=== PATIENT | male | born 1970 | race Caucasian/White ===

== ENCOUNTER 2021-05-09 09:06 | Emergency (ER) | payer OTHER, SELFPAY ==
[2021-05-09 09:07] VITALS: BP 147/88; PULSE 95; RESP 16; TEMP 36.3; O2SAT 99; BMI 38.7
[2021-05-09 09:27] VITALS: TEMP 36.8
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
[2021-05-09 09:52] LABS: Absolute Lymphocyte Count 0.83 X10^3/uL (0.83-4.51); Basophil# 0.04 X10^3/uL; Basophil% 0.4 % (0-1); Eosinophil# 0.01 X10^3/uL; Eosinophils% 0.1 % (0-5); Hematocrit 41.3 % (40-54); Lymphocyte # 0.83 X10^3/ul (0.83-4.51); Lymphocyte % 7.5 % (19-41); Mean Corp Hgb Conc 33.9 g/dL (32-36); Mean Corpuscular Hgb 29.5 pg (27.0-32.0); Mean Corpuscular Volume 87.1 fL (80-94); Mean Platelet Vol. 11.1 fl (6.2-12.0); Monocyte# 1.04 X10^3/uL; Monocyte% 9.5 % (0-10); NRBC Flagged by Analyzer 0 % (0-5); Neutrophil # 9.01 X10^3/uL (2.7-7.7); Neutrophil % 81.9 % (47-70); Platelet Count 156 K/mm3 (150-450); RBC Distribution Width CV 13.8 % (11.6-14.6); RBC Distribution Width SD 44.6 fl (35.1-43.9); Red Blood Count 4.74 M/mm3 (4.6-6.2)
[2021-05-09 10:10] LABS: ALB/GLOB Ratio 0.6 RATIO (0.9-2.4); AST(SGOT) 23 U/L (15-37); Alanine Aminotransfer ALT/SGPT 45 U/L (16-61); Albumin, Serum 3.1 g/dL (3.2-5.0); Alkaline Phosphatase 110 U/L (45-117); Anion Gap 7 (5-15); BUN 18 mg/dL (7-18); BUN/Creat Ratio 16.1 RATIO (10-20); Calcium,Total 9.1 mg/dL (8.5-10.1); Chloride 95 mmol/L (98-107); Creatinine, Serum 1.12 mg/dL (0.70-1.30); EST Glomerular Filtration Rate 73 mL/min (>60); Est Glom Filt Rate - Afr Amer 88 mL/min (>60); Estimated Creatinine Clearance 79.66 ml/min; Globulin 4.9 g/dL (2.2-4.2); Glucose 206 mg/dL (74-106); Potassium 3.8 mmol/L (3.5-5.1); Sodium Level 130 mmol/L (136-145)
[2021-05-09 10:23] LABS: Lactic Acid 1.5 mmol/L (0.4-1.9)
[2021-05-09 12:22] VITALS: BP 145/86; PULSE 92; RESP 17; TEMP 37; O2SAT 97
== END 2021-05-09 12:24 | disposition home or self-care (01) ==
PROVIDERS: Emergency Provider Emergency Medicine
DX: L03.115 Cellulitis of right lower limb (principal); E11.40 Type 2 diabetes mellitus with diabetic neuropathy, unspecified; Z79.84 Long term (current) use of oral hypoglycemic drugs; Z79.899 Other long term (current) drug therapy
CPT/HCPCS: 36415; 80053; 83605; 85025; 87040; 96365; 96366; 99284; J7030; J7040; A4216

== ENCOUNTER 2021-05-13 10:17 | Inpatient (IN) | payer OTHER, SELFPAY ==
[2021-05-13] VITALS (8 sets, daily range): BP systolic 142–176; BP diastolic 76–110; PULSE 83–98; RESP 16–18; TEMP 32.2–37; O2SAT 97–99; BMI 40.1; BMI 36.6
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
[2021-05-13 11:35] LABS: Absolute Neutrophil Count 6.2 X10^3/uL (2.0-7.7); Basophil# 0.05 X10^3/uL; Basophil% 0.6 % (0-1); Eosinophil# 0.16 X10^3/uL; Eosinophils% 1.8 % (0-5); Hematocrit 36.6 % (40-54); Hemoglobin 12.6 g/dL (13.0-16.5); Lymphocyte % 18.1 % (19-41); Mean Corp Hgb Conc 34.4 g/dL (32-36); Mean Corpuscular Hgb 29.8 pg (27.0-32.0); Mean Corpuscular Volume 86.5 fL (80-94); Mean Platelet Vol. 10.9 fl (6.2-12.0); Monocyte# 0.63 X10^3/uL; Monocyte% 7.1 % (0-10); NRBC Flagged by Analyzer 0 % (0-5); Neutrophil # 6.23 X10^3/uL (2.7-7.7); Neutrophil % 70.3 % (47-70); Platelet Count 219 K/mm3 (150-450); RBC Distribution Width CV 13.7 % (11.6-14.6); RBC Distribution Width SD 43.9 fl (35.1-43.9); Red Blood Count 4.23 M/mm3 (4.6-6.2); White Blood Count 8.9 K/mm3 (4.4-11.0)
[2021-05-13 11:42] LABS: International Normalized Ratio 1.1; Prothrombin Time (Protime)PT. 13.2 SECONDS (11.7-14.9)
[2021-05-13 11:43] LABS: Partial Thromboplast Time 29.8 Seconds (24.1-36.2)
[2021-05-13 11:57] LABS: ALB/GLOB Ratio 0.6 RATIO (0.9-2.4); AST(SGOT) 57 U/L (15-37); Alanine Aminotransfer ALT/SGPT 150 U/L (16-61); Albumin, Serum 2.9 g/dL (3.2-5.0); Alkaline Phosphatase 267 U/L (45-117); Anion Gap 8 (5-15); BUN 12 mg/dL (7-18); BUN/Creat Ratio 13.7 RATIO (10-20); Calcium,Total 9.3 mg/dL (8.5-10.1); Chloride 101 mmol/L (98-107); Creatinine, Serum 0.88 mg/dL (0.70-1.30); EST Glomerular Filtration Rate 97 mL/min (>60); Est Glom Filt Rate - Afr Amer 117 mL/min (>60); Estimated Creatinine Clearance 101.39 ml/min; Globulin 5.1 g/dL (2.2-4.2); Glucose 158 mg/dL (74-106); Potassium 4.2 mmol/L (3.5-5.1); Sodium Level 137 mmol/L (136-145)
[2021-05-13 11:59] LABS: Lactic Acid 1.7 mmol/L (0.4-1.9)
--- NOTE | 2021-05-13 12:01 | VDLE_ITS ---
Reason For Study: Swelling RIGHT GSV is normal. CFV is compressible, spontaneous, phasic, competent and demonstrates normal augmentation. FV is compressible, spontaneous, phasic, competent and demonstrates normal augmentation. POP V is compressible, spontaneous, phasic, competent and demonstrates normal augmentation. T/P Trunk is compressible. PTV is compressible. RT PerV is compressible. Procedure This is a venous duplex using B-mode, color flow and spectral Doppler. Exam performed portable in ED. A preliminary report was called and/or faxed to [facility]. VL/Venous Duplex US, Unilateral Interpretation Summary There is no evidence of right lower extremity deep vein thrombosis. Right great saphenous vein appears patent and compressible segmentally. Ordering Physician: Russell Garcia Performed By: Tiffanie Mattson RVT
--- NOTE | 2021-05-13 13:47 | RAD_ITS ---
STUDY: X-RAY - RIGHT FOOT CLINICAL: Male, 50 years old. infection TECHNIQUE: 3 view(s) of the foot. COMPARISON: None. FINDINGS: Normal talus, calcaneus, and tarsal bones. Normal visualized subtalar, talonavicular, calcaneocuboid, tarsal and tarsometatarsal articulations. Normal metatarsi. There is degenerative arthrosis of the metatarsophalangeal joint of the hallux . Normal tibial and fibular sesamoid bones. Normal interphalangeal joint of the great toe. Normal phalanges of the great toe. Normal second through fifth metatarsophalangeal joints. Partial amputation of the first digit. Normal remaining interphalangeal joints and phalanges of the lesser toes. Diffuse soft tissue swelling of the forefoot. RAD/Foot min 3 Views IMPRESSION: 1. Forefoot soft tissue swelling without erosive process. Electronically Signed: Steve Negro MD ([place]) at 14:01 EST , Service support ,
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
[2021-05-13 14:27] LABS: Erythrocyte Sedimentation Rate 74 mm/hr (0-20)
--- NOTE | 2021-05-13 15:20 | PCM.RX.CS ---
Consult Pharmacy has been consulted to manage selected antiobiotic: Vancomycin Type of Consult: New start Suspected Infection: Skin/Soft tissue Labs: Sodium 137 mmol/L (136-145) 05/13/21 11:10 Potassium 4.2 mmol/L (3.5-5.1) 05/13/21 11:10 Chloride 101 mmol/L (98-107) 05/13/21 11:10 Carbon Dioxide 28.0 mmol/L (21.0-32.0) 05/13/21 11:10 Anion Gap 8 (5-15) 05/13/21 11:10 BUN 12 mg/dL (7-18) 05/13/21 11:10 Creatinine 0.88 mg/dL (0.70-1.30) 05/13/21 11:10 Est GFR (MDRD) Af Amer 117 mL/min (>60) 05/13/21 11:10 Est GFR (MDRD) Non-Af 97 mL/min (>60) 05/13/21 11:10 BUN/Creatinine Ratio 13.7 RATIO (10-20) 05/13/21 11:10 Glucose 158 mg/dL (74-106) H 05/13/21 11:10 Goal Trough: 15-20 mcg/mL Pharmacy Plan for Drug Dosing: NEW START IV VANCOMYCIN Consulting Physician: Duke Ludwig Indication: Cellulitis Goal Trough: 15-20 SrCr: 0.88 CrCl: 124mls/min (using an adjusted body weight of 90kg) Comments: pt received a x1 dose of 2000mg in the ER on 05/13/21 at 1211 Vancomcyin Dose: based on pts weight and renal function, recommend an initial dose of 1500mg q8h. trough before the 4th total dose Pending Level: 05/14/21 at 1130 Pharmacy Service will continue to monitor and adjust dosing as required. Follow-Up Labs: Trough Vancomycin - 05/14/21 at 1130
[2021-05-13 15:22] LABS: Hemoglobin A1c 7.5 % (3.8-5.6)
[2021-05-13] MEDS: Acetaminophen 325 MG Tablet 650 MG PO ×2 (15:34→22:11)
[2021-05-13 16:35] LABS: Bedside Glucose 128 mg/dL (70-110)
[2021-05-13] MEDS: Juven (unflavored) Packet 1 PACKET PO (16:54)
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
--- NOTE | 2021-05-13 19:30 | RAD_ITS ---
STUDY: X-RAY - RIGHT TIBIA AND FIBULA REASON FOR EXAM: Male, 50 years old. cellulitis right leg TECHNIQUE: 2 view(s) of the tibia and fibula were obtained. COMPARISON: None. FINDINGS: Normal visualized tibia. Normal visualized fibula. There is non-specific soft tissue swelling. RAD/Tibia & Fibula 2 Views IMPRESSION: 1. Nonspecific soft tissue swelling. No destructive bony process. Electronically Signed: Steve Negro MD (Brooks) at 20:22 EST , Service support ,
[2021-05-13] MEDS: 0.9% Saline Lock 10 ML Syringe IV (20:16)
[2021-05-13 21:18] LABS: M R Staph aureus DNA By PCR Negative (Negative); Probe Check PASS; Specimen Processing Control PASS; Staph aureus DNA By PCR NEGATIVE (Negative)
[2021-05-13] MEDS: Gabapentin 300 MG Capsule PO (22:03)
[2021-05-13] MEDS: Enoxaparin 40 MG/0.4 ML Syringe SC (22:03)
[2021-05-13 22:40] LABS: Bedside Glucose 207 mg/dL (70-110)
[2021-05-13] MEDS: Insulin Lispro 100 UNIT/ML INSULN.PEN SC (22:59)
[2021-05-14 03:00] VITALS: BP 153/79; PULSE 80; RESP 18; TEMP 36.9; O2SAT 95
[2021-05-14] MEDS: Acetaminophen 325 MG Tablet 650 MG PO (04:42)
[2021-05-14] MEDS: Insulin Lispro 100 UNIT/ML INSULN.PEN SC ×4 (06:42→22:05)
[2021-05-14] MEDS: Gabapentin 300 MG Capsule PO ×3 (06:42→21:05)
[2021-05-14 07:05] LABS: Bedside Glucose 170 mg/dL (70-110)
[2021-05-14 08:18] LABS: Absolute Lymphocyte Count 1.48 X10^3/uL (0.83-4.51); Absolute Neutrophil Count 4.9 X10^3/uL (2.0-7.7); Basophil# 0.08 X10^3/uL; Basophil% 1.1 % (0-1); Eosinophil# 0.15 X10^3/uL; Hematocrit 34.2 % (40-54); Hemoglobin 11.2 g/dL (13.0-16.5); Lymphocyte # 1.48 X10^3/ul (0.83-4.51); Lymphocyte % 20.2 % (19-41); Mean Corp Hgb Conc 32.7 g/dL (32-36); Mean Corpuscular Hgb 28.3 pg (27.0-32.0); Mean Corpuscular Volume 86.4 fL (80-94); Mean Platelet Vol. 10.2 fl (6.2-12.0); Monocyte# 0.57 X10^3/uL; Monocyte% 7.8 % (0-10); NRBC Flagged by Analyzer 0 % (0-5); Neutrophil # 4.88 X10^3/uL (2.7-7.7); Neutrophil % 66.6 % (47-70); Platelet Count 232 K/mm3 (150-450); RBC Distribution Width CV 13.4 % (11.6-14.6); RBC Distribution Width SD 43.1 fl (35.1-43.9); Red Blood Count 3.96 M/mm3 (4.6-6.2); White Blood Count 7.3 K/mm3 (4.4-11.0)
[2021-05-14 08:46] LABS: ALB/GLOB Ratio 0.6 RATIO (0.9-2.4); AST(SGOT) 30 U/L (15-37); Alanine Aminotransfer ALT/SGPT 104 U/L (16-61); Albumin, Serum 2.6 g/dL (3.2-5.0); Alkaline Phosphatase 221 U/L (45-117); Anion Gap 7 (5-15); BUN 10 mg/dL (7-18); Calcium,Total 9.3 mg/dL (8.5-10.1); Chloride 102 mmol/L (98-107); Creatinine, Serum 0.84 mg/dL (0.70-1.30); EST Glomerular Filtration Rate 102 mL/min (>60); Est Glom Filt Rate - Afr Amer 124 mL/min (>60); Estimated Creatinine Clearance 106.22 ml/min; Globulin 4.7 g/dL (2.2-4.2); Glucose 185 mg/dL (74-106); Magnesium 2.1 mg/dL (1.6-2.6); Phosphorus 4.4 mg/dL (2.5-4.9); Potassium 4.1 mmol/L (3.5-5.1); Protein, Total 7.3 g/dL (6.4-8.2); Sodium Level 136 mmol/L (136-145)
[2021-05-14] MEDS: Enoxaparin 40 MG/0.4 ML Syringe SC ×2 (08:47→21:05)
[2021-05-14] MEDS: Juven (unflavored) Packet 1 PACKET PO ×2 (08:47→16:58)
[2021-05-14] MEDS: Lisinopril 10 MG Tablet PO (08:49)
[2021-05-14] MEDS: levoFLOXacin IV 750 MG/150 ML BAG 100 MG IV (08:49)
[2021-05-14 09:00] VITALS: BP 161/65; PULSE 79; RESP 18; TEMP 2.4; TEMP 36.3; O2SAT 98
--- NOTE | 2021-05-14 09:22 | PN_ITS ---
Subjective Subjective Patient was seen this morning for follow up on right 1st toe and leg cellulitis. He has no new complaints. He is about to get MRI completed. He is afebrile, no complaints of fever, chills, nausea or vomiting. Objective Data Objective Data Vital Signs: Vital Signs Temp Pulse Resp BP Pulse Ox 98.5 F 80 18 153/79 H 95 05/14/21 03:00 05/14/21 03:00 05/14/21 03:00 05/14/21 03:00 05/14/21 03:00 Oxygen Delivery Method Room Air Weight: 115.9 kg Body Mass Index (BMI) 36.6 Intake & Output: Intake and Output for Last 24 Hours 05/12/21 05/13/21 05/14/21 23:59 23:59 23:59 Intake Total 1130 / 1370 360 / 360 Output Total 1999 / 1999 Balance 1130 / -230 -1640 / -1640 Lab / Micro Data Result Diagrams: 05/14/21 08:03 05/14/21 08:03 Labs: Laboratory Results - last 24 hr 05/13/21 11:10: WBC 8.9, RBC 4.23 L, Hgb 12.6 L, Hct 36.6 L, MCV 86.5, MCH 29.8, MCHC 34.4, RDW Std Deviation 43.9, RDW Coeff of Cam 13.7, Plt Count 219, MPV 10.9, Immature Gran % (Auto) 2.100 H, Neut % (Auto) 70.3 H, Lymph % (Auto) 18.1 L, [place] % (Auto) 7.1, Eos % (Auto) 1.8, Baso % (Auto) 0.6, Absolute Neuts (auto) 6.2, Absolute Lymphs (auto) 1.60, Nucleated RBC % 0 05/13/21 11:10: PT 13.2, INR 1.1, APTT 29.8 05/13/21 11:10: Sodium 137, Potassium 4.2, Chloride 101, Carbon Dioxide 28.0, Anion Gap 8, BUN 12, Creatinine 0.88, Estim Creat Clear Calc 101.39, Est GFR (MDRD) Af Amer 117, Est GFR (MDRD) Non-Af 97, BUN/Creatinine Ratio 13.7, Glucose 158 H, Calcium 9.3, Total Bilirubin 0.30, AST 57 H, ALT 150 H, Alkaline Phosphatase 267 H, Total Protein 8.0, Albumin 2.9 L, Globulin 5.1 H, Albumin/Globulin Ratio 0.6 L 05/13/21 11:10: Lactic Acid 1.7 05/13/21 11:10: ESR 74 H 05/13/21 11:10: C-React Prot Ext Range 113.00 H 05/13/21 11:10: Hemoglobin A1c 7.5 H 05/13/21 15:31: POC Glucose 128 H 05/13/21 19:15: S.aureus Protein A PCR NEGATIVE, MRSA (PCR) Negative 05/13/21 22:02: POC Glucose 207 H 05/14/21 06:40: POC Glucose 170 H 05/14/21 08:03: WBC 7.3, RBC 3.96 L, Hgb 11.2 L, Hct 34.2 L, MCV 86.4, MCH 28.3, MCHC 32.7, RDW Std Deviation 43.1, RDW Coeff of Cam 13.4, Plt Count 232, MPV 1 0.2, Immature Gran % (Auto) 2.300 H, Neut % (Auto) 66.6, Lymph % (Auto) 20.2, [place] % (Auto) 7.8, Eos % (Auto) 2.0, Baso % (Auto) 1.1 H, Absolute Neuts (auto) 4.9, Absolute Lymphs (auto) 1.48, Nucleated RBC % 0 05/14/21 08:03: Sodium 136, Potassium 4.1, Chloride 102, Carbon Dioxide 27.0, Anion Gap 7, BUN 10, Creatinine 0.84, Estim Creat Clear Calc 106.22, Est GFR (MDRD) Af Amer 124, Est GFR (MDRD) Non-Af 102, BUN/Creatinine Ratio 12.0, Glucose 185 H, Calcium 9.3, Phosphorus 4.4, Magnesium 2.1, Total Bilirubin 0.50, AST 30, ALT 104 H, Alkaline Phosphatase 221 H, Total Protein 7.3, Albumin 2.6 L, Globulin 4.7 H, Albumin/Globulin Ratio 0.6 L Radiography Diagnostic Testing: Radiology Impression Venous Doppler Study 05/13/21 12:01 Interpretation Summary There is no evidence of right lower extremity deep vein thrombosis. Right great saphenous vein appears patent and compressible segmentally. Ordering Physician: Russell Garcia Performed By: Tiffanie Mattson, T Foot X-Ray 05/13/21 13:47 IMPRESSION: 1. Forefoot soft tissue swelling without erosive process. Electronically Signed: Steve Negro MD (Brooks) at 14:01 EST , Service support , Tibia/Fibula X-Ray 05/13/21 19:30 IMPRESSION: 1. Nonspecific soft tissue swelling. No destructive bony process. Electronically Signed: Steve Negro MD (Brooks) at 20:22 EST , Service support , Physical Exam Const alert, oriented x3 and no apparent distress Extremity Extremity Narrative: Right 1st toe with ulceration - there is small ulceration present - tissues are healthy and viable - no probe to bone or deeper st ructures, there is minimal erythema to the tip of the 1st toe on the right foot, cellulitis to the right leg is improved compared to yesterday, there are some intact blisters to the right leg, does not appear to have much fluid and the roofs are intact, there is edema to the right leg which is improved, there is no fluctuance, no crepitus, no visible abscess to the right lower extremity, no necrosis, no maloder present either. CFT < 2 seconds to all toes on the right foot and there is no evidence of ischemia to the foot or ankle. Decreased sensation to the foot c/w chronic neuropathy. No evidence of charcot neuroarthropathy and no POP or pain on ROM to the foot or ankle, right. Assessment & Plan Assessment/Plan (1) Cellulitis of leg, right: (2) Acute osteomyelitis of right foot: (3) Non-pressure chronic ulcer of other part of right foot with fat layer exposed: (4) Diabetes mellitus with polyneuropathy: PLAN: Evaluation performed. Reviewed diagnostic data. Further workup is indicated, as patient has hx of bone infection right 1st toe, now with cellulitis to the right lower extremity. Clinically there has been improvement this morning. Reviewed right foot and tib/fib xrays - no gas in tissues, no acute findings - MRI right foot and tib/fib pending. Venous Doppler right LE has been obtained and report states no DVT. Gauze, Kerlix and danelle dressing applied to right foot, ankle and leg. Keep foot elevated. Also a culture was obtained of the ulcer right 1st toe and was sent to micr obiology - MRSA DNA PCR negative, rest of results pending. Patient is on IV antibiotics - Vancomycin and Levaquin. Podiatry will continue to follow.
--- NOTE | 2021-05-14 09:30 | MRI_ITS ---
STUDY: MRI RIGHT MIDFOOT REASON FOR EXAM: Male, 50 years old. Cellulitis first toe. Evaluate for osteomyelitis. TECHNIQUE: Standardized fat and water weighted pulse sequences were obtained in all 3 orthogonal planes. COMPARISON: X-rays of the right foot dated 05/13/2021. FINDINGS: Dorsal soft tissue swelling compatible with cellulitis (sagittal series 7- images 5-19). Postsurgical changes of resection of the distal aspect of the distal phalanx of the first toe. No signal alteration to suggest osteomyelitis in the first toe. Mild osteoarthritic changes. MRI/Lower Ext/No Jt/w/o IMPRESSION: Dorsal soft tissue swelling compatible with cellulitis. Apparent postsurgical changes to the distal aspect of the distal phalanx of the first toe. No signal alteration to suggest osteomyelitis. Electronically Signed: Dl Bailey MD at 11:17 EST , Service support ,
--- NOTE | 2021-05-14 09:30 | MRI_ITS ---
PROCEDURE: MRI LOWER EXTREMITY RIGHT TIBIA/FIBULA REASON FOR EXAM: Male, 50 years old. Cellulitis. Evaluate for osteomyelitis. TECHNIQUE: Standardized fat and water weighted pulse sequences were obtained in all 3 orthogonal planes. COMPARISON: X-rays of the tibia and fibula dated 05/13/2021. FINDINGS: Superficial subcutaneous soft tissue edema anteriorly extending laterally (axial series 5 images 2-20). Normal tibia and fibula. MRI/Lower Ext/No Jt/w/o IMPRESSION: Superficial subcutaneous soft tissue edema compatible with cellulitis. No bone erosion to suggest osteomyelitis. Electronically Signed: Dl Bailey MD at 11:26 EST , Service support ,
--- NOTE | 2021-05-14 12:05 | CASEMGMT ---
RN CM Face to Face with patient for initial transition planning/care coordination assessment. RN CM introduced self and role at [facility]. Patient lying in bed, alert and oriented. Patient willing to participate in assessment and is able to answer all questions appropriately. Care providers, pharmacy, and demographics verified. Patient wishes to discharge home, denies need for home health at this time. Patient states he has no further needs or concerns at this time. CM to follow for discharge planning needs that may arise. PCP: [facility] Specialists: Vladislav, tetryl dissolver operatorSwapnil Preferred Pharmacy: [facility] Insurance: MMO Prescription Benefit: yes Living Will/HPOA: none LNOK: Living Arrangements: Patient lives with in a 2 story home. Patient states he is independent at home and able to ambulate stairs. Transportation: self, DME/HHC: Patient states he has shower chair at home. Patient denies previous HHC or SNF. Disposition Plan: Patient to discharge home with family support and follow-up plans in place. Will monitor for HHC for IV ATBs at discharge. Tiffanie MORENO, RN, CM
[2021-05-14 12:11] LABS: Bedside Glucose 197 mg/dL (70-110)
[2021-05-14 12:21] VITALS: O2SAT 95
[2021-05-14 12:26] LABS: Vancomycin, Trough Level 12.3 ug/mL (5.0-15.0)
--- NOTE | 2021-05-14 13:06 | PCM.RX.CS ---
Consult Pharmacy has been consulted to manage selected antiobiotic: Vancomycin Type of Consult: Follow-up Suspected Infection: Skin/Soft tissue Labs: Sodium 136 mmol/L (136-145) 05/14/21 08:03 Potassium 4.1 mmol/L (3.5-5.1) 05/14/21 08:03 Chloride 102 mmol/L (98-107) 05/14/21 08:03 Carbon Dioxide 27.0 mmol/L (21.0-32.0) 05/14/21 08:03 Anion Gap 7 (5-15) 05/14/21 08:03 BUN 10 mg/dL (7-18) 05/14/21 08:03 Creatinine 0.84 mg/dL (0.70-1.30) 05/14/21 08:03 Est GFR (MDRD) Af Amer 124 mL/min (>60) 05/14/21 08:03 Est GFR (MDRD) Non-Af 102 mL/min (>60) 05/14/21 08:03 BUN/Creatinine Ratio 12.0 RATIO (10-20) 05/14/21 08:03 Glucose 185 mg/dL (74-106) H 05/14/21 08:03 Vancomycin Trough 12.3 ug/mL (5.0-15.0) 05/14/21 11:44 Microbiology: Microbiology 05/13/21 19:15 Wound - Toe Gram Stain - Final 05/13/21 19:15 Wound - Toe Wound Culture - Preliminary No growth-Final to follow Goal Trough: 15-20 mcg/mL Pharmacy Plan for Drug Dosing: VANCOMYCIN LEVEL RECEIVED Current Vancomycin Dose: 1500MG Q8H Number of Doses Received: 2000MG X1, 1500MG X2 Vancomycin Level: 12.3 MG/DL Hours Since Last Dose: 7 Renal Function: SCR 0.84, CRCL 106 ML/MIN Renal Function Trend: STABLE Lab/Micro: BCX PENDING, WOUND CX PRELIMINARY NO GROWTH Vancomycin Plan/Comments: 7 HOUR TROUGH IS SUBTHERAPEUTIC, WILL INCREASE DOSE TO 1750MG Q8H STARTING AT 1400. WILL ORDER A TROUGH PRIOR TO 4TH DOSE OF NEW REGIMEN. Pending Level: 05/15/21 @ 1330 Pharmacy Service will continue to monitor and adjust dosing as required.
[2021-05-14 13:31] VITALS: BP 164/86; PULSE 88; RESP 16; TEMP 36.7; O2SAT 98
--- NOTE | 2021-05-14 14:11 | PN.HOSP_ITS ---
Subjective Subjective Patient reports that the swelling in his leg is much better. Podiatry is just been by and redressed his leg. He states his pain is better controlled in the calf. He is just returned from MRI. Objective Data Objective Data Vital Signs: Vital Signs Temp Pulse Resp BP Pulse Ox 98.1 F 88 16 164/86 H 98 05/14/21 13:31 05/14/21 13:31 05/14/21 13:31 05/14/21 13:31 05/14/21 13:31 Oxygen Delivery Method Room Air Weight: 115.9 kg Body Mass Index (BMI) 36.6 Intake & Output: Intake and Output for Last 24 Hours 05/12/21 05/13/21 05/14/21 23:59 23:59 23:59 Intake Total 1130 / 1370 1290 / 1290 Output Total 2900 / 2900 Balance 1130 / -230 -1610 / -1610 Lab / Micro Data Result Diagrams: 05/14/21 08:03 05/14/21 08:03 Labs: Laboratory Results - last 24 hr 05/13/21 11:10: ESR 74 H 05/13/21 11:10: C-React Prot Ext Range 113.00 H 05/13/21 11:10: Hemoglobin A1c 7.5 H 05/13/21 15:31: POC Glucose 128 H 05/13/21 19:15: S.aureus Protein A PCR NEGATIVE, MRSA (PCR) Negative 05/13/21 22:02: POC Glucose 207 H 05/14/21 06:40: POC Glucose 170 H 05/14/21 08:03: WBC 7.3, RBC 3.96 L, Hgb 11.2 L, Hct 34.2 L, MCV 86.4, MCH 28.3, MCHC 32.7, RDW Std Deviation 43.1, RDW Coeff of Cam 13.4, Plt Count 232, MPV 10.2, Immature Gran % (Auto) 2.300 H, Neut % (Auto) 66.6, Lymph % (Auto) 20.2, [place] % (Auto) 7.8, Eos % (Auto) 2.0, Baso % (Auto) 1.1 H, Absolute Neuts (auto) 4.9, Absolute Lymphs (auto) 1.48, Nucleated RBC % 0 05/14/21 08:03: Sodium 136, Potassium 4.1, Chloride 102, Carbon Dioxide 27.0, An ion Gap 7, BUN 10, Creatinine 0.84, Estim Creat Clear Calc 106.22, Est GFR (MDRD) Af Amer 124, Est GFR (MDRD) Non-Af 102, BUN/Creatinine Ratio 12.0, Glucose 185 H, Calcium 9.3, Phosphorus 4.4, Magnesium 2.1, Total Bilirubin 0.50, AST 30, ALT 104 H, Alkaline Phosphatase 221 H, Total Protein 7.3, Albumin 2.6 L, Globulin 4.7 H, Albumin/Globulin Ratio 0.6 L 05/14/21 11:01: POC Glucose 197 H 05/14/21 11:44: Vancomycin Trough 12.3 Micro: Microbiology 05/13/21 19:15 Wound - Toe Gram Stain - Final 05/13/21 19:15 Wound - Toe Wound Culture - Preliminary No growth-Final to follow Radiography Diagnostic Testing: Radiology Impression Venous Doppler Study 05/13/21 12:01 Interpretation Summary There is no evidence of right lower extremity deep vein thrombosis. Right great saphenous vein appears patent and compressible segmentally. Ordering Physician: Russell Garcia Performed By: Tiffanie Mattson RVT Tibia/Fibula X-Ray 05/13/21 19:30 IMPRESSION: 1. Nonspecific soft tissue swelling. No destructive bony process. Electronically Signed: Steve Negro MD (Brooks) at 20:22 EST , Service support , Lower Extremity MRI 05/14/21 09:30 IMPRESSION: Dorsal soft tissue swelling compatible with cellulitis. Apparent postsurgical changes to the distal aspect of the distal phalanx of the first toe. No signal alteration to suggest osteomyelitis. Electronically Signed: Dl Bailey MD at 11:17 EST , Service support , Lower Extremity MRI 05/14/21 09:30 IMPRESSION: Superficial subcutaneous soft tissue edema compatible with cellulitis. No bone erosion to suggest osteomyelitis. Electronically Signed: Dl Bailey MD at 11:26 EST , Service support , Physical Exam Const alert, oriented x3 and no apparent distress Constitutional Narrative: Obese white male lying up in bed and watching television, appears comfortable, nontoxic General Appearance: cooperative Exam Limitations: no limitations Nutritional Appearance: obese HEENT normocephalic, head/scalp atraumatic, hearing grossly normal bilaterally and moist oral mucous membranes HEENT Narrative: Mallampati 3, no thrush Head and Scalp: normocephalic Resp normal respiratory effort, no retractions, no use of accessory muscles and clear to auscultation bilaterally Auscultation: Negative for crackles, rales, rhonchi or wheezes Cardio regular rate, regular rhythm, S1 normal heart sound, S2 normal heart sound, no murmurs, no rub, no gallops, no clicks and no JVD GI normal to inspection, nondistended, normoactive bowel sounds, soft to palpation, non-tender and non-distended Extremity Extremity Narrative: Right lower extremity with Aniket bandage and foot dressing in place, dressing removed in the calf region and erythema and edema has improved, less tender, 2+ cap refill bilateral lower extremities Neuro oriented x3, moves all extremities and no focal motor deficits Sensorium / Orientation: awake and alert Speech: speech normal Assessment & Plan Assessment/Plan (1) Cellulitis of leg, right: (2) Normocytic anemia: (3) Transaminitis: (4) Diabetes: PLAN: Right lower extremity cellulitis -Worsening symptoms since Sunday -Looks better today -Failed outpatient oral antibiotics -Continue Levaquin and vancomycin -MRSA PCR is negative -MRI done today and shows no signs of osteomyelitis and only superficial subcutaneous soft tissue edema compatible with cellulitis -Patient does have history of OM of the right toe remotely -Wound consult pending -Podiatry is following -Sed rate and CRP are elevated -Doppler was negative for DVT Normocytic anemia -Suspect it is related to the acute infection -Counts are stable -No signs of acute bleeding Transaminitis -Likely cephalosporin induced with home Keflex dosing -LFTs are much improved with normalization of his AST and his ALT has trended down to 104 -We will avoid use of cephalosporins at this time DM-2 uncontrolled -Hemoglobin A1c is 7.5 -Hold home glimepiride and metformin -We'll add low-dose Lantus at at bedtime for improved blood sugar control as morning fasting sugar was 185 -Sliding scale for treatment at this time -Accu-Cheks before meals and at bedtime Hypertension -Continue lisinopril Diabetic neuropathy -Continue gabapentin THC abuse -Recommend cessation Morbid obesity -BMI is 40.2 -Recommend weight loss -Complicates overall treatment, prognosis, outcomes DVT prophylaxis -Lovenox 40 mg twice daily -We will hold SCDs given right lower extremity cellulitis CODE STATUS -Full code Charges/Coding Visit Charges Inpatient E&M: 82994 Subs Hosp L2
[2021-05-14 16:00] VITALS: BP 147/82; PULSE 88; RESP 18; TEMP 36.6; O2SAT 95
[2021-05-14 16:50] LABS: Bedside Glucose 209 mg/dL (70-110)
[2021-05-14 21:07] VITALS: BP 147/92; PULSE 82; RESP 18; TEMP 36.6; O2SAT 95
[2021-05-14 22:25] LABS: Bedside Glucose 192 mg/dL (70-110)
--- NOTE | 2021-05-14 22:54 | PCS.PANDOC ---
PANDEMIC DOCUMENTATION INITIATED: Date: 01/31/2021 Time: 190
[2021-05-15 03:44] VITALS: BP 139/93; PULSE 90; RESP 18; TEMP 36.5; O2SAT 96
[2021-05-15] MEDS: Acetaminophen 325 MG Tablet 650 MG PO (03:50)
[2021-05-15] MEDS: Gabapentin 300 MG Capsule PO (06:18)
[2021-05-15] MEDS: Insulin Lispro 100 UNIT/ML INSULN.PEN SC ×2 (06:33→11:20)
[2021-05-15 06:46] LABS: Bedside Glucose 161 mg/dL (70-110)
[2021-05-15] MEDS: Juven (unflavored) Packet 1 PACKET PO (07:46)
--- NOTE | 2021-05-15 09:24 | PN_ITS ---
Subjective Subjective Patient was seen this morning for follow up on right foot. He relates right foot/leg is doing much better today. No complaints of fever, chills, nausea or vomiting. He is asking when he can go home. Objective Data Objective Data Vital Signs: Vital Signs Temp Pulse Resp BP Pulse Ox 97.7 F L 90 18 139/93 H 96 05/15/21 03:44 05/15/21 03:44 05/15/21 03:44 05/15/21 03:44 05/15/21 03:44 Oxygen Delivery Method Room Air Weight: 115.9 kg Body Mass Index (BMI) 36.6 Intake & Output: Intake and Output for Last 24 Hours 05/13/21 05/14/21 05/15/21 23:59 23:59 23:59 Intake Total 1130 / 1370 2365 / 2900 655 / 655 Output Total 2900 / 2900 400 / 400 Balance 1130 / -230 -535 / 0 255 / 255 Lab / Micro Data Result Diagrams: 05/14/21 08:03 05/14/21 08:03 Labs: Laboratory Results - last 24 hr 05/14/21 11:01: POC Glucose 197 H 05/14/21 11:44: Vancomycin Trough 12.3 05/14/21 16:45: POC Glucose 209 H 05/14/21 22:03: POC Glucose 192 H 05/15/21 06:33: POC Glucose 161 H Micro: Microbiology 05/13/21 19:15 Wound - Toe Gram Stain - Final 05/13/21 19:15 Wound - Toe Wound Culture - Preliminary No growth-Final to follow Radiography Diagnostic Testing: Radiology Impression Lower Extremity MRI 05/14/21 09:30 IMPRESSION: Dorsal soft tissue swelling compatible with cellulitis. Apparent postsurgical changes to the distal aspect of the distal phalanx of the first toe. No signal alteration to suggest osteomyelitis. Electronically Signed: Dl Bailey MD at 11:17 EST , Service support , Lower Extremity MRI 05/14/21 09:30 IMPRESSION: Superficial subcutaneous soft tissue edema compatible with cellulitis. No bone erosion to suggest osteomyelitis. Electronically Signed: Dl Bailey MD at 11:26 EST , Service support , Physical Exam Const alert, oriented x3 and no apparent distress Extremity Extremity Narrative: Right 1st toe with healed ulceration - no probe to bone or deeper structures, cellulitis right lower extremity significantly improved, edema right LE much improved, there is no fluctuance, no crepitus, no visible abscess to the right lower extremity, no necrosis, no maloder present either. CFT < 2 seconds to all toes on the right foot and there is no evidence of isc hemia to the foot or ankle. Decreased sensation to the foot c/w chronic neuropathy. No evidence of charcot neuroarthropathy and no POP or pain on ROM to the foot or ankle, right. Assessment & Plan Assessment/Plan (1) Cellulitis of leg, right: (2) Acute osteomyelitis of right foot: (3) Non-pressure chronic ulcer of other part of right foot with fat layer exposed: (4) Diabetes mellitus with polyneuropathy: PLAN: Re-evaluation performed. Reviewed diagnostic data. Clinically there has been continued improvement this morning. MRI right foot and tib/fib reviewed and no osteomyelitis or abscess. Venous Doppler right LE has been obtained and report states no DVT. Keep foot elevated as much as possible. Also a culture was obtained of the ulcer right 1st toe and was sent to microbiology - MRSA DNA PCR negative, no growth so far, blood cultures pending. Patient is on IV antibiotics - Vancomycin and Levaquin. Patient can likely be discharged home today on oral antibiotics. Patient to follow up with me in office this week.
--- NOTE | 2021-05-15 09:34 | DCINST_ITS ---
Discharge Instructions Activity Weight Bearing Status: Partial weight bearing (Limit weightbearing on right foot as much as possible.) Keep extremity elevated above heart level: Right Leg (Keep right foot elevated with pillows as much as possible.) Dressing / Incision Call your doctor if your incision/area has: Continuous Slow Oozing, Sudden Increased Bleeding, Increased Pain/ Swelling, Increased Redness and Foul Smelling Discharge Call your doctor if you observe: Fever of 101 or Higher, Shortness of breath, Chest pain, Calf discomfort and Uncontrolled pain Remove Dressing in: 1 day (Change dressing right 1st toe daily - cleanse with normal soap and water, then apply triple antibiotic ointment or neosporin and overlying bandage daily) Cleanse incision/area with: Soap & Water Follow Up Care Please Follow Up With: Tobias Esquivel DPM When: Sunday or in office. [facility] [address], [place] [address] Office phone number: [phone] Pager: [phone] Test Results: Test results from this visit will be discussed in further detail at your follow-up appointment, if applicable. Discharge Plan Admission Admit Date/Time: 05/13/21 13:38 Attending Provider: Beckie Ludwig Consulting Providers: Tobias Esquivel Discharge Orders/Prescriptions Prescriptions: No Action metformin 500 mg Tablet 500 mg PO BID RF: 0 glimepiride 2 mg Tablet 2 mg PO BID RF: 0 lisinopril [Zestril] 10 mg Tablet 10 mg PO DAILY RF: 0 gabapentin 300 mg Tablet 300 mg PO TID RF: 0 cephalexin [cephalexin] 500 MG capsule 500 mg PO Q6 Qty: 40 RF: 0 Referrals / Follow Up: Anupama Joiner [Other]
[2021-05-15 09:58] VITALS: BP 128/78; PULSE 84; RESP 18; TEMP 36.8; O2SAT 98
[2021-05-15] MEDS: Enoxaparin 40 MG/0.4 ML Syringe SC (10:41)
[2021-05-15] MEDS: levoFLOXacin IV 750 MG/150 ML BAG 100 MG IV (10:41)
[2021-05-15] MEDS: Lisinopril 10 MG Tablet PO (10:42)
[2021-05-15 11:30] LABS: Bedside Glucose 235 mg/dL (70-110)
--- NOTE | 2021-05-15 12:49 | PCM.DC.SUM ---
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 Routine Comment: Consult: Podiatry Routine Consulting Provider: Tobias Esquivel Reason for Consult: Diabetic foot/leg infection EMERGENT Consult: No MD Notified: Yes Date Notified: 05/13/21 Time Notified: 16:07 Method of Notification: telephone Reason For Visit: R LE CELLULITIS Diagnosis Discharge Diagnosis (1) Cellulitis of leg, right: Status: Acute Code(s): L03.115 - Cellulitis of right lower limb (2) Acute osteomyelitis of right foot: Status: Acute Code(s): M86.171 - Other acute osteomyelitis, right ankle and foot (3) Non-pressure chronic ulcer of other part of right foot with fat layer exposed: Status: Chronic Code(s): L97.512 - Non-pressure chronic ulcer of other part of right foot with fat layer exposed (4) Diabetes mellitus with polyneuropathy: Status: Acute Code(s): E11.42 - Type 2 diabetes mellitus with diabetic polyneuropathy Medications at Discharge Home Medications gabapentin 300 mg PO TID 05/09/21 glimepiride 2 mg PO BID 05/09/21 lisinopril [Zestril] 10 mg PO DAILY 05/09/21 doxycycline hyclate 100 mg PO BID #16 tab 05/15/21 levofloxacin 750 mg PO DAILY #8 tab 05/15/21 metformin 1,000 mg PO BID #60 tab 05/15/21 Hospital Course Operations None Procedures - (MRI bilateral lower extremities, I&D right distal hallux) Summary of Care Provided Minutes Spent on Discharge: 34 Hospital Course: Mr. Moses is a 50-year-old male who presented to the emergency department at [facility] on 05/13/2021 after failing outpatient therapy with Keflex for right lower extremity cellulitis. The patient reported that he had started having some erythema in his right calf region on the Sunday prior to presentation and presented to the emergency department on 05/09/2021 and was evaluated at that time and discharged home on Keflex. Blood cultures were obtained at that time and were negative. He returned back to the emergency department secondary to worsening swelling and erythema. He stated that he was compliant with his home medications. He does have a history of right great toe osteomyelitis remotely and also suffered a recent burn related to his peripheral neuropathy from his diabetes that had some persistent central ulceration. He had no other complaints upon admission. In the emergency department his vital signs were found to be overall unremarkable other than some mildly elevated blood pressures. His CBC shows a mild anemia with a hemoglobin of 12.6. He did not have a leukocytosis but did have a mild left shift. His CMP showed normal electrolytes and renal function with mild hyperglycemia and a blood sugar of 158. His lactic acid was 1.7. His transaminases were elevated with an ALT of 150 and an AST of 57. His alk phos was elevated at 267. He was given ertapenem and vancomycin in the emergency department and was admitted to the medical surgical floor. A plain film of his right foot was performed and showed no signs of osteomyelitis. An MRI was performed of bilateral lower extremities and showed bilateral lower extremity skin changes consistent with cellulitis but no signs of OM. He was evaluated by podiatry and they did a soft tissue debridement of his right great toe that was very superficial. He was treated with vancomycin and Zosyn during his hospitalization and had excellent improvement in his swelling and erythema in the right lower extremity. His transaminitis did resolve and I feel that this was likely related to Keflex. His hemoglobin A1c was found to be 7.5 and given that he has uncontrolled diabetes with that hemoglobin and A1c his Metformin was increased from 500 mg twice daily to 1000 mg twice daily he was stable to be discharged home on 05/15/2021. He was discharged with doxycycline 100 mg twice daily to complete a total of a 10-day course with 8 days remaining as well as Levaquin 750 mg daily for the same duration. He was instructed to be only partial weightbearing on that right lower extremity and was given crutches prior to discharge. He will have follow-up with Dr. Esquivel as an outpatient in the next week. Discharge diagnoses: Right lower extremity cellulitis Normocytic anemia Transaminitis-resolved DM-2 uncontrolled Hypertension Diabetic neuropathy THC abuse Morbid obesity Physical Exam Const alert, oriented x3 and no apparent distress Constitutional Narrative: Obese white male lying up in bed and watching television, appears comfortable, nontoxic General Appearance: cooperative, comfortable, well kempt and well developed Orientation / Consciousness: awake Exam Limitations: no limitations Nutritional Appearance: obese HEENT normocephalic, head/scalp atraumatic, hearing grossly normal bilaterally and moist oral mucous membranes HEENT Narrative: No thrush, Mallampati 3 Eyes PERRL, EOMs intact bilaterally and conjunctivae normal Eyes Narrative: No scleral icterus Neck no lymphadenopathy, supple, no JVD and no carotid bruits Neck Narrative: Trachea midline, no thyroid enlargement Resp normal respiratory effort, no retractions, no use of accessory muscles and clear to auscultation bilaterally Auscultation: Negative for crackles, rales, rhonchi or wheezes Cardio regular rate, regular rhythm, S1 normal heart sound, S2 normal heart sound, no murmurs, no rub, no gallops, no clicks and no JVD GI normal to inspection, nondistended, normoactive bowel sounds, soft to palpation, non-tender and non-distended Extremity Extremity Narrative: Lower extremity with significant reduction in swelling and erythema, edge no significant drainage from right great hallux and Band-Aid in place, skin is no longer taut secondary to swelling Skin skin turgor normal, no jaundice, no petechiae and no mottling Skin Narrative: Good refill bilateral lower extremities Neuro oriented x3, moves all extremities and no focal motor deficits Neuro Narrative: Patient does have bilateral lower extremity neuropathy Sensorium / Orientation: awake and alert Speech: speech normal Motor Exam: strength 5/5 throughout Psych affect normal Weight / BMI Weight Weight: 115.9 kg Body Mass Index (BMI) 36.6 ABG / Lab / Microbiology Data Result Diagrams: 05/14/21 08:03 05/14/21 08:03 Laboratory: Laboratory Results - last 24 hr 05/14/21 16:45: POC Glucose 209 H 05/14/21 22:03: POC Glucose 192 H 05/15/21 06:33: POC Glucose 161 H 05/15/21 11:18: POC Glucose 235 H Microbiology: Microbiology 05/13/21 19:15 Wound - Toe Gram Stain - Final 05/13/21 19:15 Wound - Toe Wound Culture - Preliminary No growth-Final to follow D/C Instructions Discharge Diet: 1800 Calorie Control Diet Weight Bearing Status: Partial weight bearing (Limit weightbearing on right foot as much as possible.) Keep extremity elevated above heart level: Right Leg (Keep right foot elevated with pillows as much as possible.) Call your doctor if your incision/area has: Continuous Slow Oozing, Sudden Increased Bleeding, Increased Pain/ Swelling, Increased Redness and Foul Smelling Discharge Call your doctor if you observe: Fever of 101 or Higher, Shortness of breath, Chest pain, Calf discomfort and Uncontrolled pain Cleanse incision/area with: Soap & Water Please Follow Up With: Tobias Esquivel DPM When: Sunday or in office. [facility] [place] [address], [place] [address] Office phone number: [phone] Pager: [phone] Meaningful Use Info Meaningful Use Diagnoses (Choose all that apply): None applicable Discharge Plan Admission Admit Date/Time: 05/13/21 13:38 Primary Reason for Your Visit: Right lower extremity cellulitis Attending Provider: Beckie Ludwig Consulting Providers: [place] Esquivel Instructions Additional Instructions / Restrictions: 1. Follow-up with PCP in 2 weeks Discharge Orders/Prescriptions Prescriptions: New metformin 1,000 mg tablet 1,000 mg PO BID Qty: 60 RF: 0 levofloxacin 750 mg tablet 750 mg PO DAILY Qty: 8 RF: 0 doxycycline hyclate 100 mg tablet 100 mg PO BID Qty: 16 RF: 0 Continued glimepiride 2 mg Tablet 2 mg PO BID RF: 0 lisinopril [Zestril] 10 mg Tablet 10 mg PO DAILY RF: 0 gabapentin 300 mg Tablet 300 mg PO TID RF: 0 Discontinued metformin 500 mg Tablet 500 mg PO BID RF: 0 cephalexin [cephalexin] 500 MG capsule 500 mg PO Q6 Qty: 40 RF: 0 Referrals / Follow Up: Anupama Joiner [Other] Anupama Joiner [Other] Tobias Esquivel DPM [STAFF PHYSICIAN] - See Referral Note (As scheduled) Disposition Disposition (needs filled in before D/C Order can be placed): Home, Self Care Charges/Coding Visit Charges Inpatient E&M: 86768 Disch Hosp
[2021-05-15 14:14] LABS: Vancomycin, Trough Level 16.6 ug/mL (5.0-15.0)
[2021-05-15 14:24] VITALS: BP 136/79; PULSE 78; RESP 18; TEMP 36.7; O2SAT 98
== END 2021-05-15 14:45 | disposition home or self-care (01) | DRG 571 ==
LOC: ED 12:01 → PCU 14:08
PROVIDERS: Podiatrist; Admitting Provider Internal Medicine; Emergency Provider Emergency Medicine; Visit Provider Internal Medicine
DX: L03.115 Cellulitis of right lower limb (principal); Z68.41 Body mass index [BMI] 40.0-44.9, adult; E11.65 Type 2 diabetes mellitus with hyperglycemia; E11.621 Type 2 diabetes mellitus with foot ulcer; L97.512 Non-pressure chronic ulcer of other part of right foot with fat layer exposed; E11.42 Type 2 diabetes mellitus with diabetic polyneuropathy; D64.9 Anemia, unspecified; E66.01 Morbid (severe) obesity due to excess calories; I10 Essential (primary) hypertension; F12.10 Cannabis abuse, uncomplicated; S90.421A Blister (nonthermal), right great toe, initial encounter; R74.01 Elevation of levels of liver transaminase levels
CPT/HCPCS: 36415; 73590; 73630; 73718; 80053; 80202; 82962; 83036; 83605; 83735; 84100; 85025; 85610; 85652; 85730; 86140; 87040; 87070; 87075; 87205; 87640; 93971; 97162; 97802; 99251; 99284; J7040; J7050; A4216; G0463

== ENCOUNTER → 2021-05-19 14:21 | Outpatient (CLI) | payer OTHER, SELFPAY ==
[2021-05-19 17:42] LABS: Absolute Lymphocyte Count 1.81 X10^3/uL (0.83-4.51); Basophil# 0.06 X10^3/uL; Basophil% 0.7 % (0-1); Eosinophil# 0.16 X10^3/uL; Eosinophils% 1.8 % (0-5); Hematocrit 38.3 % (40-54); Hemoglobin 12.5 g/dL (13.0-16.5); Lymphocyte # 1.81 X10^3/ul (0.83-4.51); Lymphocyte % 20.9 % (19-41); Mean Corp Hgb Conc 32.6 g/dL (32-36); Mean Corpuscular Hgb 28.5 pg (27.0-32.0); Mean Corpuscular Volume 87.2 fL (80-94); Mean Platelet Vol. 10.4 fl (6.2-12.0); Monocyte# 0.55 X10^3/uL; Monocyte% 6.4 % (0-10); NRBC Flagged by Analyzer 0 % (0-5); Neutrophil # 5.97 X10^3/uL (2.7-7.7); Platelet Count 317 K/mm3 (150-450); RBC Distribution Width CV 13.4 % (11.6-14.6); RBC Distribution Width SD 43.5 fl (35.1-43.9); Red Blood Count 4.39 M/mm3 (4.6-6.2); White Blood Count 8.7 K/mm3 (4.4-11.0)
[2021-05-19 17:59] LABS: ALB/GLOB Ratio 0.6 RATIO (0.9-2.4); AST(SGOT) 21 U/L (15-37); Alanine Aminotransfer ALT/SGPT 73 U/L (16-61); Albumin, Serum 3.1 g/dL (3.2-5.0); Alkaline Phosphatase 163 U/L (45-117); Anion Gap 8 (5-15); BUN 21 mg/dL (7-18); BUN/Creat Ratio 19.4 RATIO (10-20); Calcium,Total 9.3 mg/dL (8.5-10.1); Chloride 100 mmol/L (98-107); Creatinine, Serum 1.08 mg/dL (0.70-1.30); EST Glomerular Filtration Rate 76 mL/min (>60); Est Glom Filt Rate - Afr Amer 92 mL/min (>60); Globulin 5.1 g/dL (2.2-4.2); Glucose 202 mg/dL (74-106); Potassium 4.2 mmol/L (3.5-5.1); Protein, Total 8.2 g/dL (6.4-8.2); Sodium Level 137 mmol/L (136-145)
== END ==
PROVIDERS: Referring Provider Podiatrist; Visit Provider Podiatrist
DX: L03.115 Cellulitis of right lower limb (principal)
CPT/HCPCS: 36415; 80053; 85025

== ENCOUNTER 2021-07-20 17:18 | Inpatient (IN) | payer OTHER, SELFPAY ==
[2021-07-20 17:19] VITALS: BP 169/86; PULSE 92; RESP 16; TEMP 36.7; O2SAT 100; BMI 40.0
--- NOTE | 2021-07-20 17:44 | CT_ITS ---
STUDY: CT ABDOMEN AND PELVIS WITH CONTRAST REASON FOR EXAM: Male, 50 years old. Pain RADIATION DOSAGE (If Supplied By Facility): CTDIvol = ( 16.88 ) mGy, DLP = ( 1331.20 ) mGycm TECHNIQUE: Transaxial images were obtained from the dome of the diaphragm to the symphysis pubis without oral contrast. IV 100mL Isovue-370 was administered. Sagittal and coronal images were reconstructed. Individualized dose optimization techniques were used for this CT. COMPARISON: None. FINDINGS: Small noncalcified nodule in the right lower lobe measuring approximately 11 mm in size. The visualized portions of the heart are within normal limits. Normal liver. Normal gallbladder and extrahepatic biliary system. Normal spleen. Pancreas is normal in size and homogeneous attenuation however there appear to be very subtle stranding in the peripancreatic fat possibly representing mild acute pancreatitis. Normal bilateral adrenal glands. Normal right kidney. Normal left kidney. Normal visualized stomach. Mild ileus with diffuse fecal retention in the colon. No evidence for small bowel obstruction. The appendix is visualized and appears normal. Mild atherosclerotic changes of the aorta without evidence for aneurysm Normal inferior vena cava. Normal retroperitoneum. Nonspecific bladder distention. Small bilateral fat-containing inguinal hernias slightly larger on the right Normal osseous structures. CT/Abdomen/Pelvis W IV Cont ONLY IMPRESSION: Findings suspicious for mild acute pancreatitis in association with mild diffuse ileus. No evidence for small bowel obstruction Incidental finding of small noncalcified nodule in the right lower lobe. Would recommend dedicated CT chest for more definitive evaluation . Electronically Signed: Tobias Littlejohn MD at 19:17 EST ,
--- NOTE | 2021-07-20 17:45 | ED.VIS.GI ---
HPI HPI - GI History of Present Illness Chief Complaint: Abd Pain Narrative Narrative: Patient presents with abdominal pain that he has had since yesterday morning. He describes it as dull, and achy in the periumbilical area. He denies any dysuria or hematuria. No diarrhea or constipation. No fevers or chills. Past medical history includes diabetes, type II. He only takes oral medications. He states when he takes his medications or eats food, he has worsening pain. It went away last evening but returned today. He denies any past surgical history to his abdomen. [facility] Medical History (Updated 07/20/21 @ 22:01 by Sabina Smith) Cellulitis of leg, right Chronic pain Diabetes Diabetes Diabetes mellitus with polyneuropathy Diabetic neuropathy History of osteomyelitis HTN (hypertension) Kidney stones Non-pressure chronic ulcer of other part of right foot with fat layer exposed Normocytic anemia Substance abuse Home Medications gabapentin 300 mg PO TID 05/09/21 [History Last Taken 07/20/21 10:00] glimepiride 2 mg PO BID 05/09/21 [History Last Taken 07/20/21 10:00] lisinopril [Zestril] 10 mg PO DAILY 05/09/21 [History Last Taken 07/20/21 10:00] metformin 1,000 mg PO BID #60 tab 05/15/21 [Rx Last Taken 07/20/21 10:00] Allergy/AdvReac Type Severity Reaction Status Date / Time amoxicillin AdvReac Other Verified 07/20/21 17:19 Family History Other Heart disease Surgical History Amputated great toe S/P ureteral stent placement Social History Smoking Status: Never smoker alcohol intake: current alcohol intake frequency: a few times a month substance use type: marijuana ROS ROS ED ROS Narrative Constitutional: No fever, no chills. HEENT: No sore throat. No neck pain. No loss of vision. No rhinorrhea. Cardiovascular: No chest pain. No palpitations. No pedal edema. Respiratory: No cough, no shortness of breath. Abdominal: Positive periumbilical to diffuse abdominal pain. Minimal nausea. No vomiting. Genitourinary: No dysuria. No hematuria. Musculoskeletal: No myalgias. No arthralgias. Neurologic: No headaches. No dizziness. No lightheadedness. Skin: No rash. No change in color. Psychiatric: No depression. No anxiety. EXAM Physical Exam Narrative Exam Narrative: Afebrile. Vital signs noted. HEENT: Normocephalic. Atraumatic. PERRL, EOMI. Neck soft and supple. No point tenderness or step off. Cardiovascular: Regular rate and rhythm. No murmurs, rubs, or gallops appreciated. Respiratory: No tachypnea. Lungs clear to auscultation bilaterally. Gastrointestinal: Abdomen soft, minimal periumbilical, with normoactive to decreased bowel sounds. No rebound or guarding. Neurological: Awake. Alert. Nonfocal, nonlateralizing. Skin: No rash. Normal color. No pallor. Musculoskeletal: No pedal edema. Full range of motion extremities. Const Vital Signs: 07/20/21 17:19 07/20/21 20:35 07/20/21 20:38 Temperature 98.0 F 97.8 F Temperature Source Temporal Temporal Pulse Rate 92 Respiratory Rate 16 Blood Pressure 169/86 H 159/94 H Blood Pressure Mean 113 115 Pulse Ox 100 98 Oxygen Delivery Method Room Air Room Air MDM MDM MDM Narrative Medical decision making narrative: Comprehensive work-up was pursued. He was administered a dental oral tablet. I will obtain CBC, CMP, lipase, UA, and a CT of the abdomen and pelvis with IV contrast. He may have gastroparesis given his diabetes. CBC shows normal white count at 10.6, hemoglobin 14.3. Sodium slightly low at 132 with a normal chloride of 98. His glucose is elevated at 236, but he has a normal anion gap of 7. LFTs are grossly unremarkable with a normal ALT and a normal AST/slightly low at 10. Alk phos is elevated at 124. Lipase is also elevated at 1921. Urinalysis is negative for infection. CT of the abdomen and pelvis does show inflammation around the pancreas with diffuse ileus pattern. He was made n.p.o. and was administered morphine for analgesia. Additionally, he was bolused normal saline intravenously. There was no remark of gallstones on his CT. He did state that he started a keto diet because he wanted his sugars to go down so he has been eating a lot of meat, but does not know if he has hypercholesterolemia. Patient will be discussed with Dr. Carvajal for admission. He requested a stat Lipid level. He will be admitted to med/surg in stable condition. Lab Data Attestation: I reviewed the patient's lab results. Labs: Laboratory Results - last 24 hr 07/20/21 07/20/21 07/20/21 17:30 17:30 17:30 WBC 10.6 RBC 5.06 Hgb 14.3 Hct 43.0 MCV 85.0 MCH 28.3 MCHC 33.3 RDW Std Deviation 42.8 RDW Coeff of Cam 13.9 Plt Count 213 MPV 10.5 Immature Gran % (Auto) 0.300 Neut % (Auto) 73.6 H Lymph % (Auto) 15.6 L [place] % (Auto) 7.5 Eos % (Auto) 2.3 Baso % (Auto) 0.7 Absolute Neuts (auto) 7.8 H Absolute Lymphs (auto) 1.65 Nucleated RBC % 0 Sodium 132 L Potassium 3.8 Chloride 98 Carbon Dioxide 27.0 Anion Gap 7 BUN 12 Creatinine 1.01 Estim Creat Clear Calc 88.34 Est GFR (MDRD) Af Amer 99 Est GFR (MDRD) Non-Af 82 BUN/Creatinine Ratio 11.9 Glucose 236 H Calcium 9.0 Total Bilirubin 0.40 AST 10 L ALT 25 Alkaline Phosphatase 124 H Total Protein 8.4 H Albumin 3.7 Globulin 4.7 H Albumin/Globulin Ratio 0.8 L Triglycerides 216 H Cholesterol 163 LDL Cholesterol 85 VLDL Cholesterol 43 H HDL Cholesterol 35 L Lipase 1921 H Urine Color Urine Clarity Urine pH Ur Specific [place] Urine Protein Urine Glucose (UA) Urine Ketones Urine Occult Blood Urine Nitrite Urine Bilirubin Urine Urobilinogen Ur Leukocyte Esterase Urine RBC Urine WBC Ur Squamous Epith Cells Urine Bacteria Urine Mucus 07/20/21 19:35 WBC RBC Hgb Hct MCV MCH MCHC RDW Std Deviation RDW Coeff of Cam Plt Count MPV Immature Gran % (Auto) Neut % (Auto) Lymph % (Auto) [place] % (Auto) Eos % (Auto) Baso % (Auto) Absolute Neuts (auto) Absolute Lymphs (auto) Nucleated RBC % Sodium Potassium Chloride Carbon Dioxide Anion Gap BUN Creatinine Estim Creat Clear Calc Est GFR (MDRD) Af Amer Est GFR (MDRD) Non-Af BUN/Creatinine Ratio Glucose Calcium Total Bilirubin AST ALT Alkaline Phosphatase Total Protein Albumin Globulin Albumin/Globulin Ratio Triglycerides Cholesterol LDL Cholesterol VLDL Cholesterol HDL Cholesterol Lipase Urine Color Yellow Urine Clarity Clear Urine pH 7.0 Ur Specific [place] 1.005 Urine Protein Negative Urine Glucose (UA) 50 H Urine Ketones Negative Urine Occult Blood Negative Urine Nitrite Negative Urine Bilirubin Negative Urine Urobilinogen Normal Ur Leukocyte Esterase Negative Urine RBC 0 SEEN Urine WBC 0 SEEN Ur Squamous Epith Cells 0 SEEN Urine Bacteria 0 SEEN Urine Mucus 0 SEEN Radiography Diagnostic Testing: Clinical Impression(s) from Imaging Studies Abdomen/Pelvis CT 07/20/21 17:44 IMPRESSION: Findings suspicious for mild acute pancreatitis in association with mild diffuse ileus. No evidence for small bowel obstruction Incidental finding of small noncalcified nodule in the right lower lobe. Would recommend dedicated CT chest for more definitive evaluation . Electronically Signed: Tobias Littlejohn MD at 19:17 EST Reading Location ID and State: [address] [place] [address] , Service support , Discharge Plan Dx/Rx/DC Orders Clinical Impression: Abdominal pain, Acute pancreatitis Disposition Disposition: Acute Care Hospital [facility] Discharge Date/Time: 07/20/21 21:38
[2021-07-20 17:55] LABS: Absolute Lymphocyte Count 1.65 X10^3/uL (0.83-4.51); Absolute Neutrophil Count 7.8 X10^3/uL (2.0-7.7); Basophil# 0.07 X10^3/uL; Basophil% 0.7 % (0-1); Eosinophil# 0.24 X10^3/uL; Eosinophils% 2.3 % (0-5); Hemoglobin 14.3 g/dL (13.0-16.5); Lymphocyte # 1.65 X10^3/ul (0.83-4.51); Lymphocyte % 15.6 % (19-41); Mean Corp Hgb Conc 33.3 g/dL (32-36); Mean Corpuscular Hgb 28.3 pg (27.0-32.0); Mean Platelet Vol. 10.5 fl (6.2-12.0); Monocyte# 0.79 X10^3/uL; Monocyte% 7.5 % (0-10); NRBC Flagged by Analyzer 0 % (0-5); Neutrophil # 7.79 X10^3/uL (2.7-7.7); Neutrophil % 73.6 % (47-70); Platelet Count 213 K/mm3 (150-450); RBC Distribution Width CV 13.9 % (11.6-14.6); RBC Distribution Width SD 42.8 fl (35.1-43.9); Red Blood Count 5.06 M/mm3 (4.6-6.2); White Blood Count 10.6 K/mm3 (4.4-11.0)
[2021-07-20] MEDS: Dicyclomine 10 MG Capsule 20 MG PO (18:04)
[2021-07-20] MEDS: 0.9% Normal Saline 1,000 ML 1000 ML IV (18:06)
[2021-07-20 18:45] LABS: ALB/GLOB Ratio 0.8 RATIO (0.9-2.4); AST(SGOT) 10 U/L (15-37); Alanine Aminotransfer ALT/SGPT 25 U/L (16-61); Albumin, Serum 3.7 g/dL (3.2-5.0); Alkaline Phosphatase 124 U/L (45-117); Anion Gap 7 (5-15); BUN 12 mg/dL (7-18); BUN/Creat Ratio 11.9 RATIO (10-20); Chloride 98 mmol/L (98-107); Creatinine, Serum 1.01 mg/dL (0.70-1.30); EST Glomerular Filtration Rate 82 mL/min (>60); Est Glom Filt Rate - Afr Amer 99 mL/min (>60); Estimated Creatinine Clearance 88.34 ml/min; Globulin 4.7 g/dL (2.2-4.2); Glucose 236 mg/dL (74-106); Lipase 1921 U/L (73-393); Potassium 3.8 mmol/L (3.5-5.1); Protein, Total 8.4 g/dL (6.4-8.2); Sodium Level 132 mmol/L (136-145)
[2021-07-20 19:41] LABS: Bacteria 0 SEEN /hpf (None Seen); Mucous, Urine 0 SEEN /hpf (<or=2+); Red Blood Cells-Urine 0 SEEN /hpf (0-5); Squamous Epithelial Cells - UA 0 SEEN /hpf (0-5); White Blood Cells 0 SEEN /hpf (0-5)
[2021-07-20 19:43] LABS: Color, Urine Yellow (Yellow); Glucose, Dipstick 50 mg/dl (Normal); Ketone-Dipstick Negative (Negative); Leukocyte Esterase-Dipstick Negative /ul (Negative); Nitrite-Dipstick Negative (Negative); Occult Blood-Urine Negative /ul (Negative); Protein-Dipstick Negative (Negative); Specific Gravity, Urine 1.005 (1.002-1.030); Urine Bilirubin Dipstick Negative (Negative); Urine Clarity Clear (Clear); Urine Urobilinogen Normal (Normal)
[2021-07-20] MEDS: 0.9% Normal Saline 1,000 ML 999 ML IV (20:34)
[2021-07-20] MEDS: Morphine 4 MG/ML Syringe IV (20:34)
[2021-07-20 20:35] VITALS: TEMP 36.6; O2SAT 98
[2021-07-20 20:38] VITALS: BP 159/94
--- NOTE | 2021-07-20 21:02 | PCM.HP.STD ---
[facility] - General General Date of Admission: 07/20/21 HPI Narrative AGAPITO HAUSER, is a 50 M with a significant history of hypertension; diabetes mellitus with neuropathy on gabapentin; fibromyalgia; neuropathy who presents to the emergency department with 1 day history of diffuse abdominal pain. Reports abdominal pain as aching and burning. The pain does not radiate. Of note he has chronic back pain that is unchanged. His abdominal pain increases with eating and drinking a soda like 7-Up. He does not have abdominal pain with drinking water. His pain improves by not eating or drinking soda. He took some Pepto-Bismol that did not help his pain but rather gave him loose stools. His loose stools was a day before presentation and it has since resolved. He denies any nausea and vomiting. However with giving contrast at the emergency department he had nausea and vomited. Of note about 1 week ago patient put himself on a keto diet for management of diabetes mellitus. [facility] Medical History Cellulitis of leg, right Chronic pain Diabetes Diabetes Diabetes mellitus with polyneuropathy Diabetic neuropathy History of osteomyelitis HTN (hypertension) Kidney stones Non-pressure chronic ulcer of other part of right foot with fat layer exposed Normocytic anemia Substance abuse Home Medications gabapentin 300 mg PO TID 05/09/21 [History Last Taken 07/20/21 10:00] glimepiride 2 mg PO BID 05/09/21 [History Last Taken 07/20/21 10:00] lisinopril [Zestril] 10 mg PO DAILY 05/09/21 [History Last Taken 07/20/21 10:00] metformin 1,000 mg PO BID #60 tab 05/15/21 [Rx Last Taken 07/20/21 10:00] Allergy/AdvReac Type Severity Reaction Status Date / Time amoxicillin AdvReac Other Verified 07/20/21 17:19 Family History Other Heart disease Surgical History Amputated great toe S/P ureteral stent placement Social History Smoking Status: Never smoker alcohol intake: current alcohol intake frequency: a few times a month substance use type: marijuana ROS ROS Narrative Constitutional: Reports anorexia. Denies fever, chills, fatigue, and change in weight Eyes: Denies blurry vision, change in eye color, change in vision, discharge from eye(s), double vision, erythema, eye pain, loss of vision or other HEENT: Denies abnormal hearing, dysphagia, ear pain, epistaxis, headache(s), hearing loss, nasal congestion, nasal discharge, post nasal drip, sinus pressure, sore throat or other Cardiovascular: Denies chest pain or palpitations. Denies dyspnea on exertion, orthopnea and paroxysmal nocturnal dyspnea Respiratory/Chest: Denies cough, excessive phlegm production, shortness of breath with exertion and wheezing Gastrointestinal: Reports abdominal pain and loose stool (loose stool a day before presentation, none on the day of presentation) coffee ground emesis, constipation, dyspepsia, hematemesis, hematochezia, melena. Genitourinary: Denies burning urination, difficulty urinating, dysuria, hematuria, nocturia, urinary frequency, urinary hesitancy, urinary incontinence, urinary urgency or other Musculoskeletal: Denies arthralgias, back pain, joint pain, joint stiffness, joint swelling, myalgias, neck pain or other Neurologic: Denies abnormal gait, abnormal speech, confusion, disequilibrium, dizziness, focal weakness, headache(s), numbness, paresthesias, seizure-like activity, seizures, syncope, tingling, tremor(s) or other Psychiatric: Denies anxiety, depression, homicidal ideation, suicidal ideation or other Endocrinology: Denies change in body appearance, cold intolerance, excessive sweating, heat intolerance, polydipsia, polyuria or other Hematologic/Lymphatic: Denies anemia, easy bleeding, easy bruising, lymphadenopathy or other Integumentary: Denies rashes Allergic/Immunologic: Denies rhinitis, hives, eczema, asthma or other Vital Signs Vital Signs Vital Signs: 07/20/21 17:19 07/20/21 20:35 07/20/21 20:38 Temperature 98.0 F 97.8 F Temperature Source Temporal Temporal Pulse Rate 92 Respiratory Rate 16 Blood Pressure 169/86 H 159/94 H Blood Pressure Mean 113 115 Pulse Ox 100 98 Oxygen Delivery Method Room Air Room Air Weight Weight: 126.6 kg Body Mass Index (BMI) 40.0 Physical Exam Narrative Physical exam: General: Well-nourished, well-developed. Head: Normocephalic, atraumatic, no tenderness Eyes: PERRLA, EOMI ENT, no trauma, moist mucous membranes, no rhinorrhea Neck: Nontender, full range of motion, no spinal tenderness, deformities, step-off CVS: Regular rate and rhythm. S1-S2 present. No murmur, gallop or rub. Respiratory : clear to auscultation bilaterally, chest wall nontender, no wheezing Abdomen: Soft, nontender, nondistended, normal bowel sounds, no masses : Deferred Back: Nontender, no CVA tenderness, no midline spinal tenderness, deformities, step-offs Extremities: Partial amputation of right big toe. Nontender full range of motion, no trauma Skin: Normal color, no trauma, abrasions Neuro: Alert, oriented, cranial nerves II through XII grossly intact. Psychiatry: Normal mood. Normal affect. Not depressed. Not anxious. Results Lab / Micro Data Result Diagrams: 07/20/21 17:30 07/20/21 17:30 Labs: Laboratory Results - last 24 hr 07/20/21 17:30: WBC 10.6, RBC 5.06, Hgb 14.3, Hct 43.0, MCV 85.0, MCH 28.3, MCHC 33.3, RDW Std Deviation 42.8, RDW Coeff of Cam 13.9, Plt Count 213, MPV 10.5, Immature Gran % (Auto) 0.300, Neut % (Auto) 73.6 H, Lymph % (Auto) 15.6 L, [place] % (Auto) 7.5, Eos % (Auto) 2.3, Baso % (Auto) 0.7, Absolute Neuts (auto) 7.8 H, Absolute Lymphs (auto) 1.65, Nucleated RBC % 0 07/20/21 17:30: Sodium 132 L, Potassium 3.8, Chloride 98, Carbon Dioxide 27.0, Anion Gap 7, BUN 12, Creatinine 1.01, Estim Creat Clear Calc 88.34, Est GFR (MDRD) Af Amer 99, Est GFR (MDRD) Non-Af 82, BUN/Creatinine Ratio 11.9, Glucose 236 H, Calcium 9.0, Total Bilirubin 0.40, AST 10 L, ALT 25, Alkaline Phosphatase 124 H, Total Protein 8.4 H, Albumin 3.7, Globulin 4.7 H, Albumin/Globulin Ratio 0.8 L, Lipase 1921 H 07/20/21 19:35: Urine Color Yellow, Urine Clarity Clear, Urine pH 7.0, Ur Specific [place] 1.005, Urine Protein Negative, Urine Glucose (UA) 50 H, Urine Ketones Negative, Urine Occult Blood Negative, Urine Nitrite Negative, Urine Bilirubin Negative, Urine Urobilinogen Normal, Ur Leukocyte Esterase Negative, Urine RBC 0 SEEN, Urine WBC 0 SEEN, Ur Squamous Epith Cells 0 SEEN, Urine Bacteria 0 SEEN, Urine Mucus 0 SEEN Radiology Impression Abdomen/Pelvis CT 07/20/21 17:44 IMPRESSION: Findings suspicious for mild acute pancreatitis in association with mild diffuse ileus. No evidence for small bowel obstruction Incidental finding of small noncalcified nodule in the right lower lobe. Would recommend dedicated CT chest for more definitive evaluation . Electronically Signed: Tobias Littlejohn MD at 19:17 EST Reading Location ID and State: [address] [place] [address] , Service support , Assessment & Plan Assessment/Plan (1) Acute pancreatitis: QUALIFIERS: Acute pancreatitis complication: no infection or necrosis Pancreatitis type: unspecified pancreatitis type Qualified Code(s): K85.90 - Acute pancreatitis without necrosis or infection, unspecified (2) Diabetes: QUALIFIERS: Diabetes mellitus complication detail: with polyneuropathy Diabetes mellitus complication status: with neurologic complications Diabetes mellitus care home insulin use: without care home use Diabetes mellitus type: type 2 Qualified Code(s): E11.42 - Type 2 diabetes mellitus with diabetic polyneuropathy PLAN: Acute pancreatitis Review of ED labs showed lipase of 1921. Hematocrit: 43 BUN: 12 Patient received normal saline bolus at emergency department. Lactated Ringer's at 250 mL's per hour ml/hr Pain regimen: Received morphine 4 mg IV push at emergency department. As needed morphine IV ordered. Antiemetics: Zofran as needed ordered. Oral feeding may be started after ultrasound of gallbladder if patient can tolerate. For now we will keep patient n.p.o. except with sips. BMP showed calcium of 9.0. Ultrasound gallbladder Abdomen and pelvis CT was independently visualized and interpreted. I agree with allege interpretation of mild stranding of the pancreas. Discussed with ED doctor who gets a stat lipids, follow. Of note patient recently started a keto diet. Diabetes mellitus with hyperglycemia and polyneuropathy Gabapentin continued Hold home hypoglycemic regimen. Accu-Chek with correction scale insulin ordered. Right lower lobe nodule Per radiologist impression of CTA and abdomen and pelvis patient have incidental small noncalcified nodule in the right lower lobe. Patient to follow-up longitudinally. DVT prophylaxis: Subcutaneous Lovenox ordered. Charges/Coding Visit Charges Inpatient E&M: 50027 Init Hosp L3
[2021-07-20 21:19] LABS: Cholesterol 163 mg/dL (200); High Density Lipoprotein 35 mg/dL; Triglycerides 216 mg/dL; Very Low Density Lipoprotein 43 mg/dL (5-40)
[2021-07-20 21:20] VITALS: BP 155/88; PULSE 88; RESP 18; TEMP 36.6; O2SAT 98
[2021-07-20 21:47] VITALS: BMI 39.6
[2021-07-20] MEDS: Gabapentin 300 MG Capsule PO (22:12)
[2021-07-20] MEDS: Lactated Ringers 1,000 ML 250 ML IV (22:12)
[2021-07-20 22:15] VITALS: BP 167/90; PULSE 94; RESP 18; TEMP 36.6; O2SAT 96
[2021-07-20] MEDS: Morphine 2 MG/ML Syringe IV (23:51)
[2021-07-21 01:01] LABS: Bedside Glucose 217 mg/dL (70-110)
[2021-07-21] MEDS: Lactated Ringers 1,000 ML 250 ML IV ×2 (02:18→06:18)
[2021-07-21] MEDS: Morphine 2 MG/ML Syringe IV ×2 (03:03→06:30)
[2021-07-21 03:04] VITALS: BP 173/95; PULSE 76; RESP 18; TEMP 36.9; O2SAT 99
[2021-07-21 03:39] VITALS: BP 173/95; PULSE 76
[2021-07-21] MEDS: hydrALAZINE 20 MG/ML Vial 5 MG IV (03:39)
--- NOTE | 2021-07-21 05:55 | US_ITS ---
STUDY: ABDOMINAL ULTRASOUND - RIGHT UPPER QUADRANT REASON FOR VISIT: Male, 50 years old Acute Pancreatitis TECHNIQUE: Ultrasound evaluation of the right upper quadrant was performed with real-time and static moon-scale imaging. TECHNICAL QUALITY: Adequate. COMPARISON: None. FINDINGS: Liver: The liver is mildly enlarged and measures 19.4 cm. There is increased echogenicity consistent with fatty infiltration. There is a 3.1 cm x 3.1 cm by 2.8 cm wedge-shaped hypoechoic density in the inferior peripheral aspect of the right lobe of the liver. This may represent a focal area of fatty sparing. No abnormality is seen on the CT scan performed on July 20. The bile ducts are within normal limits. There is hepatic color flow. The direction of portal flow is hepatopetal. There is no demonstrated mass lesion. Gallbladder: Normal distended gallbladder. The gallbladder wall measures 2.2 mm. There is a negative sonographic Fuller''s sign. There is trace amount of pericholecystic fluid. There are no gallstones. Common Bile Duct (C.B.D.): The common bile duct measures 3.0 mm. Pancreas: Normal size of the head, body of the pancreas. The tail portion is obscured by overlying bowel gas. Heterogeneous appearance of the pancreas. There is no demonstrated pancreatic mass or cyst. Right Kidney: Normal size of the right kidney. The right kidney measures 13.8 cm x 7.1 cm x 7 cm. Normal renal cortex. The right cortex measures 2.7 cm. There is no demonstrated renal mass or cyst. There is no right hydronephrosis. US/Gallbladder IMPRESSION: Mild hepatomegaly and diffuse fatty infiltration. Findings suggest multifocal wedge-shaped area of focal fatty sparing in the peripheral aspect of the right lobe of the liver inferiorly. Electronically Signed: Subhash Ennis MD at 10:26 EST ,
[2021-07-21] MEDS: Insulin Lispro 100 UNIT/ML INSULN.PEN SC ×3 (06:25→11:38)
[2021-07-21] MEDS: Ondansetron 4 MG/2 ML Vial IV (06:30)
[2021-07-21 06:42] LABS: Basophil# 0.05 X10^3/uL; Basophil% 0.5 % (0-1); Eosinophil# 0.23 X10^3/uL; Eosinophils% 2.3 % (0-5); Hematocrit 39.8 % (40-54); Hemoglobin 13.6 g/dL (13.0-16.5); Lymphocyte % 16.2 % (19-41); Mean Corp Hgb Conc 34.2 g/dL (32-36); Mean Corpuscular Hgb 28.9 pg (27.0-32.0); Mean Corpuscular Volume 84.5 fL (80-94); Mean Platelet Vol. 9.9 fl (6.2-12.0); Monocyte# 0.93 X10^3/uL; Monocyte% 9.4 % (0-10); NRBC Flagged by Analyzer 0 % (0-5); Neutrophil # 7.01 X10^3/uL (2.7-7.7); Neutrophil % 71.2 % (47-70); Platelet Count 213 K/mm3 (150-450); RBC Distribution Width CV 13.5 % (11.6-14.6); RBC Distribution Width SD 41.8 fl (35.1-43.9); Red Blood Count 4.71 M/mm3 (4.6-6.2); White Blood Count 9.9 K/mm3 (4.4-11.0)
[2021-07-21 06:55] LABS: Bedside Glucose 182 mg/dL (70-110)
[2021-07-21 07:08] LABS: Anion Gap 7 (5-15); BUN 9 mg/dL (7-18); Calcium,Total 8.8 mg/dL (8.5-10.1); Chloride 98 mmol/L (98-107); Creatinine, Serum 0.82 mg/dL (0.70-1.30); EST Glomerular Filtration Rate 105 mL/min (>60); Est Glom Filt Rate - Afr Amer 127 mL/min (>60); Estimated Creatinine Clearance 108.81 ml/min; Glucose 193 mg/dL (74-106); Sodium Level 132 mmol/L (136-145)
[2021-07-21] MEDS: 0.9% Saline Lock 10 ML Syringe IV (07:44)
[2021-07-21 07:51] VITALS: O2SAT 96
[2021-07-21 09:28] VITALS: BP 153/86; PULSE 84; RESP 18; TEMP 36.5; O2SAT 96
[2021-07-21] MEDS: Lisinopril 10 MG Tablet PO (09:30)
[2021-07-21] MEDS: Enoxaparin 40 MG/0.4 ML Syringe SC (09:30)
[2021-07-21] MEDS: Gabapentin 300 MG Capsule PO (09:30)
[2021-07-21 11:46] LABS: Bedside Glucose 244 mg/dL (70-110)
--- NOTE | 2021-07-21 11:55 | PCM.DC ---
Discharge Instructions Diet Discharge Diet: No restrictions Dressing / Incision Call your doctor if you observe: - (worsening abdominal pain) Follow Up Care Test Results: Test results from this visit will be discussed in further detail at your follow-up appointment, if applicable. Discharge Plan Admission Admit Date/Time: 07/20/21 20:51 Primary Reason for Your Visit: pancreatitis Attending Provider: Josse Barajas Discharge Orders/Prescriptions Prescriptions: New ondansetron 8 mg tablet,disintegrating 8 mg PO Q8H PRN (Reason: nausea and vomiting) Qty: 10 RF: 0 oxycodone 5 mg tablet 5 mg PO BID PRN (Reason: pain) 3 Days Qty: 6 RF: 0 Continued glimepiride 2 mg Tablet 2 mg PO BID RF: 0 lisinopril [Zestril] 10 mg Tablet 10 mg PO DAILY RF: 0 gabapentin 300 mg Tablet 300 mg PO TID RF: 0 metformin 1,000 mg tablet 1,000 mg PO BID Qty: 60 RF: 0 Referrals / Follow Up: Ray Freeman [Other] - Within 2 Weeks Ray Freeman [Other] Rafael Rodriguez DO [STAFF PHYSICIAN] - Within 1 Month (pancreatitis) Disposition Disposition (needs filled in before D/C Order can be placed): Home, Self Care
--- NOTE | 2021-07-21 12:09 | PCM.DC.SUM ---
Providers Date of Admission: 07/20/21 Primary Care Physician: Ray Freeman Reason For Visit: ACUTE PANCREATITIS Diagnosis Discharge Diagnosis (1) Acute pancreatitis: Status: Acute Code(s): K85.90 - Acute pancreatitis without necrosis or infection, unspecified Qualifiers: Pancreatitis type: unspecified pancreatitis type Acute pancreatitis complication: no infection or necrosis Qualified Code(s): K85.90 - Acute pancreatitis without necrosis or infection, unspecified (2) Diabetes: Status: Inactive Code(s): E11.9 - Type 2 diabetes mellitus without complications Qualifiers: Diabetes mellitus type: type 2 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 Diabetes mellitus complication status: with neurologic complications Diabetes mellitus complication detail: with polyneuropathy Qualified Code(s): E11.42 - Type 2 diabetes mellitus with diabetic polyneuropathy Medications at Discharge Home Medications gabapentin 300 mg PO TID 05/09/21 glimepiride 2 mg PO BID 05/09/21 lisinopril [Zestril] 10 mg PO DAILY 05/09/21 metformin 1,000 mg PO BID #60 tab 05/15/21 ondansetron 8 mg PO Q8H PRN #10 tab 07/21/21 oxycodone 5 mg PO BID PRN 3 Days #6 tab 07/21/21 Hospital Course Operations None Summary of Care Provided Minutes Spent on Discharge: 32 Hospital Course: This is a 50-year-old male presents with abdominal pain. Began about day before. Presented to the emergency room and was found to be in acute pancreatitis. Lipase was 1921 and CAT scan showed findings suspicious for mild acute pancreatitis as well as mild diffuse ileus. Patient was started on IV fluids as well as pain control and overall felt better. Today, the patient's diet was advanced and he tolerated that. He did have an ultrasound that showed some fatty liver changes but no obvious source of his pancreatitis regards to gallstones. Patient states that he drinks very infrequently and his last drink was about 2 weeks ago. I feel that his alcohol consumption is likely noncontributory to his acute pancreatitis. In regards to his etiology of pancreatitis is still yet to be determined but being that he is otherwise doing well. I feel the patient can be discharged home and I have recommended that he follow-up with gastroenterology in case there is another etiology for his pancreatitis. Physical Exam Const alert and no apparent distress Cardio regular rate, regular rhythm and S1 normal heart sound GI normal to inspection, nondistended, normoactive bowel sounds, soft to palpation, non-tender and non-distended Extremity normal to inspection and full ROM Skin no rashes or lesions noted Neuro Sensorium / Orientation: awake and alert Weight / BMI Weight Weight: 125.7 kg Body Mass Index (BMI) 39.6 ABG / Lab / Microbiology Data Result Diagrams: 07/21/21 06:30 07/21/21 06:30 Laboratory: Laboratory Results - last 24 hr 07/20/21 17:30: WBC 10.6, RBC 5.06, Hgb 14.3, Hct 43.0, MCV 85.0, MCH 28.3, MCHC 33.3, RDW Std Deviation 42.8, RDW Coeff of Cam 13.9, Plt Count 213, MPV 10.5, Immature Gran % (Auto) 0.300, Neut % (Auto) 73.6 H, Lymph % (Auto) 15.6 L, [place] % (Auto) 7.5, Eos % (Auto) 2.3, Baso % (Auto) 0.7, Absolute Neuts (auto) 7.8 H, Absolute Lymphs (auto) 1.65, Nucleated RBC % 0 07/20/21 17:30: Sodium 132 L, Potassium 3.8, Chloride 98, Carbon Dioxide 27.0, Anion Gap 7, BUN 12, Creatinine 1.01, Estim Creat Clear Calc 88.34, Est GFR (MDRD) Af Amer 99, Est GFR (MDRD) Non-Af 82, BUN/Creatinine Ratio 11.9, Glucose 236 H, Calcium 9.0, Total Bilirubin 0.40, AST 10 L, ALT 25, Alkaline Phosphatase 124 H, Total Protein 8.4 H, Albumin 3.7, Globulin 4.7 H, Albumin/Globulin Ratio 0.8 L, Lipase 1921 H 07/20/21 17:30: Triglycerides 216 H, Cholesterol 163, LDL Cholesterol 85, VLDL Cholesterol 43 H, HDL Cholesterol 35 L 07/20/21 19:35: Urine Color Yellow, Urine Clarity Clear, Urine pH 7.0, Ur Specific [place] 1.005, Urine Protein Negative, Urine Glucose (UA) 50 H, Urine Ketones Negative, Urine Occult Blood Negative, Urine Nitrite Negative, Urine Bilirubin Negative, Urine Urobilinogen Normal, Ur Leukocyte Esterase Negative, Urine RBC 0 SEEN, Urine WBC 0 SEEN, Ur Squamous Epith Cells 0 SEEN, Urine Bacteria 0 SEEN, Urine Mucus 0 SEEN 07/20/21 23:55: POC Glucose 217 H 07/21/21 06:20: POC Glucose 182 H 07/21/21 06:30: WBC 9.9, RBC 4.71, Hgb 13.6, Hct 39.8 L, MCV 84.5, MCH 28.9, MCHC 34.2, RDW Std Deviation 41.8, RDW Coeff of [place] 13.5, Plt Count 213, MPV 9.9, Immature Gran % (Auto) 0.400, Neut % (Auto) 71.2 H, Lymph % (Auto) 16.2 L, [place] % (Auto) 9.4, Eos % (Auto) 2.3, Baso % (Auto) 0.5, Absolute Neuts (auto) 7.0, Absolute Lymphs (auto) 1.60, Nucleated RBC % 0 07/21/21 06:30: Sodium 132 L, Potassium 4.0, Chloride 98, Carbon Dioxide 27.0, Anion Gap 7, BUN 9, Creatinine 0.82, Estim Creat Clear Calc 108.81, Est GFR (MDRD) Af Amer 127, Est GFR (MDRD) Non-Af 105, BUN/Creatinine Ratio 11.0, Glucose 193 H, Calcium 8.8 07/21/21 11:36: POC Glucose 244 H Radiography Diagnostic Testing: Radiology Impression Abdomen/Pelvis CT 07/20/21 17:44 IMPRESSION: Findings suspicious for mild acute pancreatitis in association with mild diffuse ileus. No evidence for small bowel obstruction Incidental finding of small noncalcified nodule in the right lower lobe. Would recommend dedicated CT chest for more definitive evaluation . Electronically Signed: Tobias Littlejohn MD at 19:17 EST , Gallbladder Ultrasound 07/21/21 05:55 IMPRESSION: Mild hepatomegaly and diffuse fatty infiltration. Findings suggest multifocal wedge-shaped area of focal fatty sparing in the peripheral aspect of the right lobe of the liver inferiorly. Electronically Signed: Subhash Ennis MD at 10:26 EST , D/C Instructions Discharge Diet: No restrictions Call your doctor if you observe: - (worsening abdominal pain) Meaningful Use Info Meaningful Use Diagnoses (Choose all that apply): None applicable Discharge Plan Admission Admit Date/Time: 07/20/21 20:51 Primary Reason for Your Visit: pancreatitis Attending Provider: Josse Barajas Discharge Orders/Prescriptions Prescriptions: New ondansetron 8 mg tablet,disintegrating 8 mg PO Q8H PRN (Reason: nausea and vomiting) Qty: 10 RF: 0 oxycodone 5 mg tablet 5 mg PO BID PRN (Reason: pain) 3 Days Qty: 6 RF: 0 Continued glimepiride 2 mg Tablet 2 mg PO BID RF: 0 lisinopril [Zestril] 10 mg Tablet 10 mg PO DAILY RF: 0 gabapentin 300 mg Tablet 300 mg PO TID RF: 0 metformin 1,000 mg tablet 1,000 mg PO BID Qty: 60 RF: 0 Referrals / Follow Up: Ray Freeman [Other] - Within 2 Weeks Ray Freeman [Other] Friend,DO Rafael [STAFF PHYSICIAN] - Within 1 Month (pancreatitis) Disposition Disposition (needs filled in before D/C Order can be placed): Home, Self Care Charges/Coding Visit Charges Inpatient E&M: 88195 Disch Hosp
[2021-07-21 12:22] VITALS: BP 153/89; PULSE 82; RESP 18; TEMP 36.6; O2SAT 98
--- NOTE | 2021-07-21 13:10 | CASEMGMT ---
JEAN RODRIGUEZ attempted to complete assessment. Patietn was discharge prior to assessment getting completed. Patient is established with PCP, has family support, and independent. No needs identified at this time.
== END 2021-07-21 12:44 | disposition home or self-care (01) | DRG 440 ==
LOC: ED 20:11 → MS3 21:07
PROVIDERS: Admitting Provider Hospitalist; Emergency Provider Emergency Medicine
DX: K85.90 Acute pancreatitis without necrosis or infection, unspecified (principal); E11.42 Type 2 diabetes mellitus with diabetic polyneuropathy; K76.0 Fatty (change of) liver, not elsewhere classified; E11.65 Type 2 diabetes mellitus with hyperglycemia; I10 Essential (primary) hypertension; F12.90 Cannabis use, unspecified, uncomplicated; K80.20 Calculus of gallbladder without cholecystitis without obstruction; G89.29 Other chronic pain; R91.8 Other nonspecific abnormal finding of lung field
CPT/HCPCS: 36415; 74177; 76705; 80048; 80053; 80061; 81001; 82962; 83690; 85025; 99284; J7030; J7120; Q9967; A4216; J2405

== ENCOUNTER 2022-05-18 10:19 | Emergency (ER) | payer OTHER, SELFPAY ==
[2022-05-18 10:20] VITALS: BP 172/91; PULSE 96; RESP 16; TEMP 36.6; O2SAT 100; BMI 37.6
--- NOTE | 2022-05-18 11:02 | ED.VIS.LOWEX ---
HPI History of Present Illness HPI Narrative: Presents with redness to his left foot that has been getting worse over the last 5 days. Patient states he stepped on a nail that went through his shoe. Patient states he was seen at urgent care and was started on antibiotics. Patient states that he has an appointment with a cardiology consultant. Patient states his cardiology consultant told him to come to the emergency department for further evaluation. Patient had a tetanus booster earlier this week at an urgent care. Patient also had x-rays done there. Patient was started on antibiotics at the urgent care but states the redness and swelling is getting worse. Patient denies any discharge or drainage. Patient denies any fevers or chills. Chief Complaint: Lower Extremity Injury Informant: patient Onset/Context/Timing Onset: Days (5) Context: Gradual Onset Timing: Continuous Quality of Pain: Stabbing Location: Left foot Worsened by: Ambulation and weightbearing Relieved by: Gabapentin Associated Symptoms Associated Symptoms: Positive for Parasthesia Narrative Tetanus Immunization: <5 years [facility] Medical History (Updated 05/18/22 @ 13:[address] Josse Montague, ) Cellulitis of leg, right Chronic pain Diabetes Diabetes Diabetes mellitus with polyneuropathy Diabetic neuropathy History of osteomyelitis HTN (hypertension) Kidney stones Neuropathy Non-pressure chronic ulcer of other part of right foot with fat layer exposed Normocytic anemia Substance abuse Home Medications gabapentin 300 mg tablet 300 mg PO TID NEUROPATHY 05/09/21 [History Last Taken 07/20/21 10:00] glimepiride 2 mg tablet 2 mg PO BID DIABETES 05/09/21 [History Last Taken 07/20/21 10:00] lisinopril 10 mg tablet (Zestril) 10 mg PO DAILY BLOOD PRESSURE 05/09/21 [History Last Taken 07/20/21 10:00] metformin 1,000 mg tablet 1,000 mg PO BID #60 tabs 05/15/21 [Rx Last Taken 07/20/21 10:00] ciprofloxacin HCl 500 mg tablet 500 mg PO BID #20 tabs 05/18/22 [Rx Last Taken Unknown] doxycycline hyclate 100 mg capsule 100 mg PO BID 05/18/22 [History Last Taken Unknown] insulin NPH-regular 70-30 U-100 insulin 100 unit/mL subcutaneous pen (Novolin 70-30 FlexPen U-100 Insulin) 10 unit subcut BREAKFAST 05/18/22 [History Last Taken Unknown] insulin NPH-regular 70-30 U-100 insulin 100 unit/mL subcutaneous pen (Novolin 70-30 FlexPen U-100 Insulin) 15 unit subcut DINNER 05/18/22 [History Last Taken Unknown] Allergy/AdvReac Type Severity Reaction Status Date / Time amoxicillin AdvReac Other Verified 05/18/22 10:22 Family History Other Heart disease Surgical History Amputated great toe S/P ureteral stent placement Social History Smoking Status: Never smoker alcohol intake: current alcohol intake frequency: a few times a month substance use type: marijuana ROS ROS ED Constitutional Constitutional ED: Denies chills or fever(s) Eyes Eyes: Denies blurry vision or change in vision ENT ENT ED: Denies rhinorrhea or sore throat Cardiovascular Cardiovascular: Denies chest pain or palpitations Respiratory/Chest Respiratory/Chest: Denies cough or dyspnea Gastrointestinal Gastrointestinal: Denies nausea or vomiting Genitourinary Genitourinary ED: Denies dysuria or hematuria Musculoskeletal Musculoskeletal: Reports back pain; Denies neck pain Integumentary Reports abscess and rash Neurologic Neurologic: Denies headache(s) or weakness Allergic/Immunologic Allergic/Immunologic ED: Denies mouth swelling or urticaria EXAM Physical Exam Const Vital Signs: 05/18/22 10:20 05/18/22 11:04 Temperature 97.9 F 97.9 F Temperature Source Temporal Temporal Pulse Rate 96 96 Respiratory Rate 16 16 Blood Pressure 172/91 H 172/91 H Blood Pressure Mean 118 118 Pulse Ox 100 100 Oxygen Delivery Method Room Air Room Air Positive well nourished, well developed and obese General Appearance ED: well developed and NAD Nutritional Appearance: obese HEENT Reports moist mucous membranes Extremity Extremity Narrative: There is a puncture wound noted to the plantar surface of the left foot over the distal third metatarsal area. There is surrounding erythema. There is erythema over the dorsum of the foot and the third digit of the left foot. There is no active discharge or drainage. There is no fluctuance. Sensation was intact to light touch in all digits. Capillary refill was less than 2 seconds in all digits. Pedal pulses are equal bilaterally. Neuro oriented x3, CN's II-XII intact bilaterally, moves all extremities and no sensory deficits noted Sensorium / Orientation: alert Motor Exam: strength 5/5 throughout Psych mental status grossly normal MDM MDM MDM Narrative Medical decision making narrative: X-rays from outlying facility were reviewed. There are 3 views. On my interpretation, there is no evidence of osteomyelitis. There is no acute fracture. CBC was within normal limits. Basic metabolic profile was essentially within normal limits. Lactate was normal. Patient was given a dose of IV Cipro here. Patient will be instructed to stop taking the doxycycline. Patient was given a prescription for Cipro. I discussed the case with Dr. Wells, patient's cardiology consultant. He agrees with the treatment plan and will follow up with the patient next week. Patient understood and was agreeable with the plan. All questions were answered. Lab Data Attestation: I reviewed the patient's lab results. Labs: Laboratory Results - last 24 hr 05/18/22 05/18/22 05/18/22 11:30 11:30 11:30 WBC 10.7 RBC 4.68 Hgb 13.5 Hct 41.4 MCV 88.5 MCH 28.8 MCHC 32.6 RDW Std Deviation 44.1 H RDW Coeff of Cam 13.6 Plt Count 200 MPV 11.3 Immature Gran % (Auto) 0.400 Neut % (Auto) 76.5 H Lymph % (Auto) 12.9 L [place] % (Auto) 7.3 Eos % (Auto) 2.3 Baso % (Auto) 0.6 Absolute Neuts (auto) 8.2 H Absolute Lymphs (auto) 1.38 Nucleated RBC % 0 Sodium 138 Potassium 4.0 Chloride 102 Carbon Dioxide 31.0 Anion Gap 5 BUN 16 Creatinine 0.86 Estim Creat Clear Calc 105.80 Est GFR (MDRD) Af Amer 119 Est GFR (MDRD) Non-Af 99 BUN/Creatinine Ratio 18.6 Glucose 152 H Lactic Acid 1.1 Calcium 9.6 Discharge Plan Triage Chief Complaint: Lower Extremity Injury ED Provider: Josse Montague Dx/Rx/DC Orders Clinical Impression: Puncture wound of left foot Instructions: ED Puncture Wound (Foot) Prescriptions: New ciprofloxacin HCl [ciprofloxacin HCl] 500 mg tablet 500 mg PO BID Qty: 20 0RF No Action glimepiride 2 mg Tablet 2 mg PO BID lisinopril [Zestril] 10 mg Tablet 10 mg PO DAILY gabapentin 300 mg Tablet 300 mg PO TID metformin 1,000 mg tablet 1,000 mg PO BID Qty: 60 0RF doxycycline hyclate 100 mg capsule 100 mg PO BID Label Comments: take 1 capsule by mouth twice a day for 10 days Novolin 70-30 FlexPen U-100 100 unit/mL (70-30) insulin pen 10 unit SUBCUT BREAKFAST Novolin 70-30 FlexPen U-100 100 unit/mL (70-30) insulin pen 15 unit SUBCUT DINNER Primary Care Provider: SURINDER STORY Referrals: SURINDER STORY [Other] - 5-7 Days Activity Restrictions/Additional Instructions: Stop taking the doxycycline. He was given a prescription for ciprofloxacin. Take this as prescribed. Follow-up with Dr. Wells next week. Disposition Disposition: Home, Self Care
[2022-05-18 11:04] VITALS: BP 172/91; PULSE 96; RESP 16; TEMP 36.6; O2SAT 100
[2022-05-18] MEDS: Ciprofloxacin 400 MG/200 ML BAG 200 MG IV (11:40)
[2022-05-18 11:41] LABS: Absolute Lymphocyte Count 1.38 X10^3/uL (0.83-4.51); Absolute Neutrophil Count 8.2 X10^3/uL (2.0-7.7); Basophil# 0.06 X10^3/uL; Basophil% 0.6 % (0-1); Eosinophil# 0.25 X10^3/uL; Eosinophils% 2.3 % (0-5); Hematocrit 41.4 % (40-54); Hemoglobin 13.5 g/dL (13.0-16.5); Lymphocyte # 1.38 X10^3/ul (0.83-4.51); Lymphocyte % 12.9 % (19-41); Mean Corp Hgb Conc 32.6 g/dL (32-36); Mean Corpuscular Hgb 28.8 pg (27.0-32.0); Mean Corpuscular Volume 88.5 fL (80-94); Mean Platelet Vol. 11.3 fl (6.2-12.0); Monocyte# 0.78 X10^3/uL; Monocyte% 7.3 % (0-10); NRBC Flagged by Analyzer 0 % (0-5); Neutrophil # 8.17 X10^3/uL (2.7-7.7); Neutrophil % 76.5 % (47-70); Platelet Count 200 K/mm3 (150-450); RBC Distribution Width CV 13.6 % (11.6-14.6); RBC Distribution Width SD 44.1 fl (35.1-43.9); Red Blood Count 4.68 M/mm3 (4.6-6.2); White Blood Count 10.7 K/mm3 (4.4-11.0)
[2022-05-18 11:51] LABS: Anion Gap 5 (5-15); BUN 16 mg/dL (7-18); BUN/Creat Ratio 18.6 RATIO (10-20); Calcium,Total 9.6 mg/dL (8.5-10.1); Chloride 102 mmol/L (98-107); Creatinine, Serum 0.86 mg/dL (0.70-1.30); EST Glomerular Filtration Rate 99 mL/min (>60); Est Glom Filt Rate - Afr Amer 119 mL/min (>60); Glucose 152 mg/dL (74-106); Sodium Level 138 mmol/L (136-145)
[2022-05-18 12:16] LABS: Lactic Acid 1.1 mmol/L (0.4-1.9)
[2022-05-18 14:09] VITALS: BP 142/86; PULSE 79; RESP 18; O2SAT 95
== END 2022-05-18 14:23 | disposition home or self-care (01) ==
PROVIDERS: Emergency Provider Emergency Medicine; Visit Provider Emergency Medicine
DX: S91.332A Puncture wound without foreign body, left foot, initial encounter (principal); E11.42 Type 2 diabetes mellitus with diabetic polyneuropathy; Z79.4 Long term (current) use of insulin; I10 Essential (primary) hypertension; E66.9 Obesity, unspecified; X58.XXXA Exposure to other specified factors, initial encounter
CPT/HCPCS: 80048; 83605; 85025; 87040; 96365; 99284; J7040; A4216; J0744

== ENCOUNTER 2022-07-18 11:44 | Observation (INO) | payer OTHER, SELFPAY ==
[2022-07-18 11:45] VITALS: BP 181/81; PULSE 91; RESP 16; TEMP 36.6; O2SAT 98; BMI 38.3
--- NOTE | 2022-07-18 12:00 | EX.ED.DYSGE1 ---
HPI History of Present Illness Chief Complaint: Abd Pain Informant: patient Onset/Context/Timing Onset: Days (3 days) Context: Gradual Onset Timing: Waxes and wanes Current Severity: Moderate Maximum Severity: Moderate Narrative Narrative: Patient presents secondary to abdominal pain that feels like his prior pancreatitis. He states pain started about 3 days ago. He does admit to drinking several beers the night before. He points to the right flank area describing his area of pain, however states this feels like his pancreatitis. He has had nausea and dry heaves. No fever. PFSH [facility] Medical History Cellulitis of leg, right Chronic pain Diabetes Diabetes Diabetes mellitus with polyneuropathy Diabetic neuropathy History of osteomyelitis HTN (hypertension) Kidney stones Neuropathy Non-pressure chronic ulcer of other part of right foot with fat layer exposed Normocytic anemia Substance abuse Home Medications gabapentin 300 mg tablet 300 mg PO TID NEUROPATHY 05/09/21 [History Last Taken 07/20/21 10:00] glimepiride 2 mg tablet 2 mg PO BID DIABETES 05/09/21 [History Last Taken 07/20/21 10:00] lisinopril 10 mg tablet (Zestril) 10 mg PO DAILY BLOOD PRESSURE 05/09/21 [History Last Taken 07/20/21 10:00] metformin 1,000 mg tablet 1,000 mg PO BID #60 tabs 05/15/21 [Rx Last Taken 07/20/21 10:00] ciprofloxacin HCl 500 mg tablet 500 mg PO BID #20 tabs 05/18/22 [Rx Last Taken Unknown] doxycycline hyclate 100 mg capsule 100 mg PO BID 05/18/22 [History Last Taken Unknown] insulin NPH-regular 70-30 U-100 insulin 100 unit/mL subcutaneous pen (Novolin 70-30 FlexPen U-100 Insulin) 10 unit subcut BREAKFAST 05/18/22 [History Last Taken Unknown] insulin NPH-regular 70-30 U-100 insulin 100 unit/mL subcutaneous pen (Novolin 70-30 FlexPen U-100 Insulin) 15 unit subcut DINNER 05/18/22 [History Last Taken Unknown] Allergy/AdvReac Type Severity Reaction Status Date / Time amoxicillin AdvReac Other Verified 07/18/22 11:46 Family History Other Heart disease Surgical History Amputated great toe S/P ureteral stent placement Social History Smoking Status: Never smoker alcohol intake: current alcohol intake frequency: a few times a month substance use type: marijuana ROS ROS ED Constitutional Constitutional ED: Reports chills; Denies fever(s) Eyes Eyes: Denies change in vision or discharge from eye(s) ENT ENT ED: Denies discharge from eye(s), rhinorrhea or sore throat Cardiovascular Cardiovascular: Denies chest pain or palpitations Respiratory/Chest Respiratory/Chest: Denies cough or dyspnea Gastrointestinal Gastrointestinal: Reports abdominal pain, nausea and other Details: Dry heaves ; Denies diarrhea Genitourinary Genitourinary ED: Denies dysuria Musculoskeletal Musculoskeletal: Denies back pain or extremity pain Integumentary Denies Abrasions or rash Neurologic Neurologic: Denies headache(s) or weakness Psychiatric Psychiatric: Denies anxiety or depression Allergic/Immunologic Allergic/Immunologic ED: Denies lip swelling or urticaria EXAM Physical Exam Const Vital Signs: 07/18/22 11:45 Temperature 97.8 F Temperature Source Temporal Pulse Rate 91 Respiratory Rate 16 Blood Pressure 181/81 H Blood Pressure Mean 114 Pulse Ox 98 Oxygen Delivery Method Room Air Positive well nourished and well developed General Appearance ED: well developed HEENT Reports normocephalic and head/scalp atraumatic Eyes PERRL and EOMs intact bilaterally Neck supple Chest Wall inspection of chest normal and palpation of chest normal Resp normal respiratory effort and clear to auscultation bilaterally Cardio regular rate and regular rhythm GI GI Narrative: Abdomen soft with mild distention. Hypoactive bowel sounds. Mild epigastric tenderness. Palpation: soft Extremity normal to inspection Neuro oriented x3 and no sensory deficits noted Sensorium / Orientation: alert Motor Exam: strength 5/5 throughout Psych mental status grossly normal Skin no rashes or lesions noted MDM MDM MDM Narrative Medical decision making narrative: Patient was given morphine and Zofran for pain and nausea. Lab work obtained and patient given IV fluids. Lab Data Attestation: I reviewed the patient's lab results. Labs: Laboratory Results - last 24 hr 07/18/22 07/18/2207/18/23 12:11 12:11 12:15 WBC 10.1 RBC 4.82 Hgb 13.9 Hct 41.0 MCV 85.1 MCH 28.8 MCHC 33.9 RDW Std Deviation 43.8 RDW Coeff of Cam 14.2 Plt Count 147 L MPV 11.0 Immature Gran % (Auto) 0.400 Neut % (Auto) 75.8 H Lymph % (Auto) 13.6 L [place] % (Auto) 9.4 Eos % (Auto) 0.5 Baso % (Auto) 0.3 Absolute Neuts (auto) 7.7 Absolute Lymphs (auto) 1.37 Nucleated RBC % 0 Sodium 133 L Potassium 4.0 Chloride 99 Carbon Dioxide 26.0 Anion Gap 8 BUN 20 H Creatinine 1.85 H Estim Creat Clear Calc 49.18 Est GFR (MDRD) Af Amer 49 L Est GFR (MDRD) Non-Af 41 L BUN/Creatinine Ratio 10.8 Glucose 221 H Calcium 9.1 Total Bilirubin 0.60 Direct Bilirubin 0.13 AST 15 ALT 26 Alkaline Phosphatase 92 Total Protein 7.5 Albumin 3.6 Globulin 3.9 Lipase 31 L Urine Color Yellow Urine Clarity Clear Urine pH 6.0 Ur Specific [place] 1.015 Urine Protein 15 H Urine Glucose (UA) 1000 H Urine Ketones Negative Urine Occult Blood 10 H Urine Nitrite Negative Urine Bilirubin Negative Urine Urobilinogen Normal Ur Leukocyte Esterase Negative Urine RBC 0 SEEN Urine WBC 0 SEEN Ur Squamous Epith Cells 0 SEEN Urine Bacteria 0 SEEN Urine Mucus 0 SEEN Radiography Diagnostic Testing: Clinical Impression(s) from Imaging Studies Abdomen/Pelvis CT 07/18/22 12:43 IMPRESSION: 7.4 mm calculus in the proximal portion of the right ureter with right hydronephrosis and engorgement of the right kidney. Hepatomegaly. Electronically Signed: Subhash Ennis MD at 13:49 EST , Treatment and Re-Evaluation Narrative: CBC is unremarkable. Chemistry studies significant only for slightly low sodium of 133 as well as BUN of 20 and creatinine of 1.85. It appears his baseline creatinine is around 0.8. Glucose is 221. LFTs are normal and lipase is 31. Urinalysis reveals glucose but no acute signs of infection. Given the patient's acute kidney injury he was sent for CT of the flank. He has a 7.4 mm calculus in the proximal right ureter with hydronephrosis and engorgement of the right kidney. Patient has required repeat dose of pain medication while here. I spoke with Dr. Lopez. He will admit the patient tonight for pain control with plan to take the patient to the OR tomorrow. Discharge Plan Triage Chief Complaint: Abd Pain ED Provider: Amber Raman Dx/Rx/DC Orders Clinical Impression: Kidney stone Prescriptions: No Action glimepiride 2 mg Tablet 2 mg PO BID lisinopril [Zestril] 10 mg Tablet 10 mg PO DAILY gabapentin 300 mg Tablet 300 mg PO TID metformin 1,000 mg tablet 1,000 mg PO BID Qty: 60 0RF doxycycline hyclate 100 mg capsule 100 mg PO BID Label Comments: take 1 capsule by mouth twice a day for 10 days Novolin 70-30 FlexPen U-100 100 unit/mL (70-30) insulin pen 10 unit SUBCUT BREAKFAST Novolin 70-30 FlexPen U-100 100 unit/mL (70-30) insulin pen 15 unit SUBCUT DINNER ciprofloxacin HCl [ciprofloxacin HCl] 500 mg tablet 500 mg PO BID Qty: 20 0RF Primary Care Provider: SURINDER STORY Referrals: [facility] Doctor,Out of [Non-Staff] - Disposition Disposition: Acute Care Hospital [facility]
[2022-07-18] MEDS: 0.9% Normal Saline 1,000 ML 150 ML IV (12:15)
[2022-07-18] MEDS: Morphine 4 MG/ML Syringe IV ×2 (12:15→13:54)
[2022-07-18] MEDS: Ondansetron 4 MG/2 ML Vial IV (12:15)
[2022-07-18 12:22] LABS: Absolute Lymphocyte Count 1.37 X10^3/uL (0.83-4.51); Absolute Neutrophil Count 7.7 X10^3/uL (2.0-7.7); Basophil# 0.03 X10^3/uL; Basophil% 0.3 % (0-1); Eosinophil# 0.05 X10^3/uL; Eosinophils% 0.5 % (0-5); Hemoglobin 13.9 g/dL (13.0-16.5); Lymphocyte # 1.37 X10^3/ul (0.83-4.51); Lymphocyte % 13.6 % (19-41); Mean Corp Hgb Conc 33.9 g/dL (32-36); Mean Corpuscular Hgb 28.8 pg (27.0-32.0); Mean Corpuscular Volume 85.1 fL (80-94); Monocyte# 0.95 X10^3/uL; Monocyte% 9.4 % (0-10); NRBC Flagged by Analyzer 0 % (0-5); Neutrophil # 7.66 X10^3/uL (2.7-7.7); Neutrophil % 75.8 % (47-70); Platelet Count 147 K/mm3 (150-450); RBC Distribution Width CV 14.2 % (11.6-14.6); RBC Distribution Width SD 43.8 fl (35.1-43.9); Red Blood Count 4.82 M/mm3 (4.6-6.2); White Blood Count 10.1 K/mm3 (4.4-11.0)
[2022-07-18 12:24] LABS: Bacteria 0 SEEN /hpf (None Seen); Mucous, Urine 0 SEEN /hpf (<or=2+); Red Blood Cells-Urine 0 SEEN /hpf (0-5); Squamous Epithelial Cells - UA 0 SEEN /hpf (0-5); White Blood Cells 0 SEEN /hpf (0-5)
[2022-07-18 12:26] LABS: Color, Urine Yellow (Yellow); Glucose, Dipstick 1000 mg/dl (Normal); Ketone-Dipstick Negative (Negative); Leukocyte Esterase-Dipstick Negative /ul (Negative); Nitrite-Dipstick Negative (Negative); Occult Blood-Urine 10 /ul (Negative); Protein-Dipstick 15 mg/dl (Negative); Specific Gravity, Urine 1.015 (1.002-1.030); Urine Bilirubin Dipstick Negative (Negative); Urine Clarity Clear (Clear); Urine Urobilinogen Normal (Normal)
[2022-07-18 12:35] LABS: AST(SGOT) 15 U/L (15-37); Alanine Aminotransfer ALT/SGPT 26 U/L (16-61); Albumin, Serum 3.6 g/dL (3.2-5.0); Alkaline Phosphatase 92 U/L (45-117); Anion Gap 8 (5-15); BUN 20 mg/dL (7-18); BUN/Creat Ratio 10.8 RATIO (10-20); Bilirubin, Direct 0.13 mg/dL (0.00-0.30); Calcium,Total 9.1 mg/dL (8.5-10.1); Chloride 99 mmol/L (98-107); Creatinine, Serum 1.85 mg/dL (0.70-1.30); EST Glomerular Filtration Rate 41 mL/min (>60); Est Glom Filt Rate - Afr Amer 49 mL/min (>60); Estimated Creatinine Clearance 49.18 ml/min; Globulin 3.9 g/dL (2.2-4.2); Glucose 221 mg/dL (74-106); Lipase 31 U/L (73-393); Protein, Total 7.5 g/dL (6.4-8.2); Sodium Level 133 mmol/L (136-145)
--- NOTE | 2022-07-18 12:43 | CT_ITS ---
STUDY: CT ABDOMEN AND PELVIS WITHOUT CONTRAST REASON FOR EXAM: Male, 51 years old. Right flank pain.. Abdominal pain. History of pancreatitis. RADIATION DOSAGE (If Supplied By Facility): CTDIvol = ( 21.79 ) mGy, DLP = ( 1133.43 ) mGycm TECHNIQUE: Transaxial images were obtained from the dome of the diaphragm to the symphysis pubis without oral contrast, and without intravenous contrast. Sagittal and coronal images were reconstructed. Individualized dose optimization techniques were used for this CT. COMPARISON: Comparison is made with prior study of 07/20/2021. FINDINGS: The visualized lung bases are unremarkable. Coronary artery calcification. Hepatomegaly. Normal gallbladder and extrahepatic biliary system. Normal spleen. Normal pancreas. Normal bilateral adrenal glands. Engorgement of the right kidney with the right perinephric stranding. Mild degree of right hydronephrosis due to a 7.4 mm calculus in the proximal portion of the right ureter. Normal left kidney. Normal visualized stomach. Normal small intestine. Normal colon. The appendix is visualized and appears normal. There is scattered atherosclerotic calcification of the abdominal aorta and its major visceral branches, without a demonstrated aneurysm. Normal inferior vena cava. Normal retroperitoneum. Normal urinary bladder. There is a small umbilical hernia containing fat. Normal osseous structures. CT/Abdomen/Pelvis without Cont IMPRESSION: 7.4 mm calculus in the proximal portion of the right ureter with right hydronephrosis and engorgement of the right kidney. Hepatomegaly. Electronically Signed: Subhash Ennis MD at 13:49 EST ,
[2022-07-18 13:44] VITALS: BP 134/78; PULSE 78; RESP 16; O2SAT 99
[2022-07-18] MEDS: 0.9% Normal Saline 1,000 ML 1000 ML IV (13:52)
[2022-07-18] MEDS: Ketorolac 15 MG/ML Vial IV ×2 (13:53→19:55)
--- NOTE | 2022-07-18 14:49 | NURSING ---
FLOOR TO CALL FOR ORDERS
--- NOTE | 2022-07-18 14:58 | NURSING ---
MED SURG OBS MARKIE KIDNEY STONE
[2022-07-18 15:00] VITALS: BP 145/78; PULSE 78; RESP 16; TEMP 36.3; O2SAT 100
[2022-07-18 15:45] VITALS: BP 134/83; PULSE 79; RESP 18; TEMP 36.6; O2SAT 97
[2022-07-18 15:46] VITALS: BMI 39.5
[2022-07-18] MEDS: 0.9% Normal Saline 1,000 ML 75 ML IV (17:31)
[2022-07-18] MEDS: Glimepiride 2 MG Tablet PO (18:32)
[2022-07-18] MEDS: metFORMIN HCl 1,000 MG Tablet 1000 MG PO (18:32)
[2022-07-18 19:00] LABS: Bedside Glucose 126 mg/dL (74-106)
[2022-07-18] MEDS: 0.9% Saline Lock 10 ML Syringe IV (19:55)
[2022-07-18 21:28] VITALS: BP 124/73; PULSE 86; RESP 20; TEMP 36.6; O2SAT 95
[2022-07-18] MEDS: Gabapentin 300 MG Capsule PO (21:30)
[2022-07-18 23:20] LABS: Bedside Glucose 121 mg/dL (74-106)
[2022-07-19] VITALS (7 sets, daily range): BP systolic 117–140; BP diastolic 63–88; PULSE 77–95; RESP 16–20; TEMP 36.4–36.8; O2SAT 95–99; BMI 39.5
[2022-07-19] MEDS: 0.9% Saline Lock 10 ML Syringe IV ×2 (04:29→08:58)
[2022-07-19] MEDS: Ondansetron 4 MG/2 ML Vial IV (04:30)
[2022-07-19] MEDS: Morphine 2 MG/ML Syringe IV (04:31)
[2022-07-19] MEDS: 0.9% Normal Saline 1,000 ML 75 ML IV (04:37)
[2022-07-19] MEDS: Gabapentin 300 MG Capsule PO (06:34)
[2022-07-19] MEDS: Insulin Lispro 100 UNIT/ML INSULN.PEN SC (06:37)
[2022-07-19 07:40] LABS: Bedside Glucose 189 mg/dL (74-106)
--- NOTE | 2022-07-19 07:40 | PCM.HP.STD ---
HPI - General General Date of Admission: 07/18/22 HPI Narrative AGAPITO HAUSER, is a 51 M who presents to the emergency room with a large proximal right ureteral calculi causing obstruction severe hydronephrosis the patient had severe pain emergency room doctor called me to asked me to admit the patient for pain control since they could not send him home because his pain did not get under control. White blood count is normal but we will plan to admit the patient and place a stent to unblock the kidney and then plan for treatment of the stone with shockwave lithotripsy at another date once he is stable [facility] Medical History Amputated toe of right foot Biceps tendon rupture Cellulitis of leg, right Chronic pain Current use of insulin Diabetes Diabetes Diabetes mellitus with polyneuropathy Diabetic neuropathy History of osteomyelitis HTN (hypertension) Kidney stones Neuropathy Non-pressure chronic ulcer of other part of right foot with fat layer exposed Normocytic anemia Pancreatitis Substance abuse Home Medications gabapentin 300 mg tablet 300 mg PO TID NEUROPATHY 05/09/21 [History Last Taken 07/20/21 10:00] glimepiride 2 mg tablet 2 mg PO BID DIABETES 05/09/21 [History Last Taken 07/20/21 10:00] lisinopril 10 mg tablet (Zestril) 10 mg PO DAILY BLOOD PRESSURE 05/09/21 [History Last Taken 07/20/21 10:00] metformin 1,000 mg tablet 1,000 mg PO BID #60 tabs 05/15/21 [Rx Last Taken 07/20/21 10:00] insulin NPH-regular 70-30 U-100 insulin 100 unit/mL subcutaneous pen (Novolin 70-30 FlexPen U-100 Insulin) 10 unit subcut BREAKFAST 05/18/22 [History Last Taken Unknown] insulin NPH-regular 70-30 U-100 insulin 100 unit/mL subcutaneous pen (Novolin 70-30 FlexPen U-100 Insulin) 15 unit subcut DINNER 05/18/22 [History Last Taken Unknown] Allergy/AdvReac Type Severity Reaction Status Date / Time amoxicillin AdvReac thrush Verified 07/18/22 15:50 Family History Other Heart disease Surgical History Amputated great toe S/P ureteral stent placement Social History Smoking Status: Never smoker alcohol intake: current alcohol intake frequency: a few times a month substance use type: marijuana Vital Signs Vital Signs Vital Signs: 07/18/22 11:45 07/18/22 13:44 07/18/22 15:00 Temperature 97.8 F 97.4 F L Temperature Source Temporal Temporal Pulse Rate 91 78 78 Respiratory Rate 16 16 16 Respiratory Effort Respiratory Depth Respiratory Pattern Blood Pressure 181/81 H 134/78 H 145/78 H Blood Pressure Mean 114 96 100 Blood Pressure Source Blood Pressure Position Blood Pressure Location Pulse Ox 98 99 100 Oxygen Delivery Method Room Air Room Air Room Air 07/18/22 15:45 07/18/22 21:28 07/18/22 21:30 Temperature 97.9 F 97.8 F Temperature Source Oral Oral Pulse Rate 79 86 Respiratory Rate 18 20 H Respiratory Effort Normal Respiratory Depth Normal Respiratory Pattern Normal Blood Pressure 134/83 H 124/73 H Blood Pressure Mean 100 90 Blood Pressure Source Monitor Blood Pressure Position Semi-Fowlers Blood Pressure Location Left Arm Pulse Ox 97 95 Oxygen Delivery Method Room Air Room Air Room Air 07/19/22 04:20 07/19/22 04:44 Temperature 98 F Temperature Source Oral Pulse Rate 80 Respiratory Rate 18 Respiratory Effort Respiratory Depth Respiratory Pattern Blood Pressure 138/71 H Blood Pressure Mean 93 Blood Pressure Source Blood Pressure Position Blood Pressure Location Pulse Ox 95 Oxygen Delivery Method Room Air Room Air Weight Weight: 128.7 kg Body Mass Index (BMI) 39.5 Results Lab / Micro Data Result Diagrams: 07/18/22 12:11 07/18/22 12:11 Labs: Laboratory Results - last 24 hr 07/18/22 12:11: WBC 10.1, RBC 4.82, Hgb 13.9, Hct 41.0, MCV 85.1, MCH 28.8, MCHC 33.9, RDW Std Deviation 43.8, RDW Coeff of Cam 14.2, Plt Count 147 L, MPV 11.0, Immature Gran % (Auto) 0.400, Neut % (Auto) 75.8 H, Lymph % (Auto) 13.6 L, [place] % (Auto) 9.4, Eos % (Auto) 0.5, Baso % (Auto) 0.3, Absolute Neuts (auto) 7.7, Absolute Lymphs (auto) 1.37, Nucleated RBC % 0 07/18/22 12:11: Sodium 133 L, Potassium 4.0, Chloride 99, Carbon Dioxide 26.0, Anion Gap 8, BUN 20 H, Creatinine 1.85 H, Estim Creat Clear Calc 49.18, Est GFR (MDRD) Af Amer 49 L, Est GFR (MDRD) Non-Af 41 L, BUN/Creatinine Ratio 10.8, Glucose 221 H, Calcium 9.1, Total Bilirubin 0.60, Direct Bilirubin 0.13, AST 15, ALT 26, Alkaline Phosphatase 92, Total Protein 7.5, Albumin 3.6, Globulin 3.9, Lipase 31 L 07/18/22 12:15: Urine Color Yellow, Urine Clarity Clear, Urine pH 6.0, Ur Specific [place] 1.015, Urine Protein 15 H, Urine Glucose (UA) 1000 H, Urine Ketones Negative, Urine Occult Blood 10 H, Urine Nitrite Negative, Urine Bilirubin Negative, Urine Urobilinogen Normal, Ur Leukocyte Esterase Negative, Urine RBC 0 SEEN, Urine WBC 0 SEEN, Ur Squamous Epith Cells 0 SEEN, Urine Bacteria 0 SEEN, Urine Mucus 0 SEEN 07/18/22 18:36: POC Glucose 126 H 07/18/22 21:36: POC Glucose 121 H Radiology Impression Abdomen/Pelvis CT 07/18/22 12:43 IMPRESSION: 7.4 mm calculus in the proximal portion of the right ureter with right hydronephrosis and engorgement of the right kidney. Hepatomegaly. Electronically Signed: Subhash Ennis MD at 13:49 EST , Assessment & Plan Assessment/Plan (1) Kidney stone: PLAN: N.p.o. for surgery plan for surgery today for cystoscopy and stent placement on the right
[2022-07-19 08:12] LABS: Hemoglobin A1c 6.9 % (3.8-5.6)
[2022-07-19] MEDS: Lisinopril 10 MG Tablet PO (08:54)
[2022-07-19] MEDS: Ketorolac 15 MG/ML Vial IV (08:57)
[2022-07-19] MEDS: Lactated Ringers 1,000 ML 15 ML IV (09:33)
--- NOTE | 2022-07-19 09:58 | PCM.DC ---
Discharge Instructions Diet Discharge Diet: No restrictions, Light diet - advance as tolerated and Soft diet Activity Discharge Activity: Return to Normal Activity Follow Up Care Please Follow Up With: Yash Lopez MD When: call [phone] for appt. Test Results: Test results from this visit will be discussed in further detail at your follow-up appointment, if applicable. Discharge Plan Admission Admit Date/Time: 07/18/22 14:51 Primary Reason for Your Visit: kidney stone Attending Provider: Yash Lopez Primary Care Provider: SURINDER STORY Discharge Orders/Prescriptions Prescriptions: New oxycodone-acetaminophen [Percocet] 5-325 mg tablet 1 tab PO Q6H PRN (Reason: pain) 7 Days Qty: 14 0RF ciprofloxacin HCl [Cipro] 500 mg tablet 500 mg PO BID Qty: 6 0RF Continued glimepiride 2 mg Tablet 2 mg PO BID lisinopril [Zestril] 10 mg Tablet 10 mg PO DAILY gabapentin 300 mg Tablet 300 mg PO TID metformin 1,000 mg tablet 1,000 mg PO BID Qty: 60 0RF Novolin 70-30 FlexPen U-100 100 unit/mL (70-30) insulin pen 10 unit SUBCUT BREAKFAST Novolin 70-30 FlexPen U-100 100 unit/mL (70-30) insulin pen 15 unit SUBCUT DINNER Referrals / Follow Up: SURINDER STORY [Other] [facility] Doctor,Out of [Non-Staff] - Disposition Discharge Orders: Discharge Patient (Routine); Ordered 07/19/22 Ordered By: Dr. Yash Lopez
[2022-07-19] MEDS: Cefazolin 2 GM in 0.9% Normal Saline 100 ML IV (10:00)
--- NOTE | 2022-07-19 10:47 | OP.PCM_ITS ---
Report of Operation Date of Procedure: 07/19/22 Pre-Operative Diagnosis: Right ureteral obstructing calculi Post-Operative Diagnosis: Same Surgery/Procedure Performed:: Cystoscopy, balloon dilation of the right ureter, right retrograde pyelogram, right ureteroscopy laser lithotripsy of stone, and right stent placement Description of Surgical Findings:: This is a patient who presents to the hospital for treatment for an obstructing ureter calculi. I discussed with the patient how the surgery would be performed and we reviewed the risks and benefits of the surgery. The risk and benefits include the risk of failure to remove the stone completely and that the patient may need multiple procedures. We discussed the risk of an infection, the risk of bleeding. We discussed the very rare risk of serious complicated injury to the ureter. The patient understands that if the stone is not able to be removed safely that we may abort the procedure and place a stent. After full discussion and all questions address with the patient the consent form was signed the side was marked appropriately and the patient was taken back to the operating room for the procedure. The patient was taken back to the operating room. After induction of anesthesia by the anesthesiology team the patient was placed in dorsolithotomy position. The genitals were prepped and draped in usual sterile fashion. I went into the bladder with a 21 Indonesian rigid cystourethroscope through the urethra. Upon entering the bladder I inspected the trigone the left and right ureteral orifice and the bladder itself. I then cannulated the right ureteral orifice and advanced a 0.038 Glidewire up into the kidney. Then over the Glidewire I advanced a 5 Fr Ureteral catheter and performed a retrograde pyelogram with about 10cc of contrast, to delineate the anatomy and identify the stone location. Then a ureteral balloon dilator was advanced over the wire and the distal ureter was balloon dilated with a 12 Fr x 5cm balloon dilator. After 3 minutes of dilating the ureter the balloon was backloaded off the 0.038 glidewire over the 0.038 guidewire I went in with the flexible 7.5fr ureteroscope. I was able to go inside with the 7.5Fr utereroscope and I pulled out the guidewire and then through the ureteroscope I engage the stone with laser lithotripsy using a 270miron laser fiber with energy setting of 6 Hertz and 0.6 J until the stone was lasered into tiny little pieces that should pass on their own. A retrograde pyelogram was performed with 10cc of contrast and no extravasation of contrast or perforation was identified in the ureter there was some mild irritation of the ureter where the stone was located. I then backed out of the ureter left the wire in place and then over the 0.038 guidewire I placed a double coiled pigtail ureteral stent. The ureteral stent was advanced over the 0.038 guidewire under direct fluoroscopic guidance and direct cystoscopic visual guidance, once the stent was in good position I pulled the wire and the stent coiled in the kidney and bladder in good position. I then drained the patient's bladder and the cystoscope was removed and the patient was taken back to the recovery room in good position. The patient was given discharge instructions to call the office for instructions on when to come to the office to have the stent removed. Surgeon: Yash Lopez Type of Anesthesia: General Drains: stent in place Admit VTE Documentation VTE Present on Admission: No VTE Mechan Device Prophylaxis: SCD's VTE Pharm Prophylaxis ordered?: No
[2022-07-19 11:50] LABS: Bedside Glucose 158 mg/dL (74-106)
--- NOTE | 2022-07-19 20:21 | EKG12_ITS ---
Test Reason : PRE OP Blood Pressure : / mmHG Vent. Rate : 081 BPM Atrial Rate : 081 BPM P-R Int : 160 ms QRS Dur : 094 ms QT Int : 346 ms P-R-T Axes : 070 033 039 degrees QTc Int : 401 ms Normal sinus rhythm Low voltage QRS Septal infarct , age undetermined Abnormal ECG No previous ECGs available Confirmed by JENISE LUI, KAMRYN ([id number]), supervising editor news reel NASRIN SANCHEZ ([id number]) on 07/21/2022 9:08:08 AM Referred By: MARKIE Confirmed By:LUDWIG BURDEN MD
== END 2022-07-19 14:30 | disposition home or self-care (01) ==
LOC: ED 14:48 → MS3 15:06
PROVIDERS: Anesthesiology; Admitting Provider Urology; Emergency Provider Emergency Medicine; Visit Provider Urology
PROC: 0TJ98ZZ Inspection of Ureter, Via Natural or Artificial Opening Endoscopic (ICD-10-PCS; CPT 52352; principal; 2022-07-19 14:10)
DX: N13.2 Hydronephrosis with renal and ureteral calculous obstruction (principal); E11.42 Type 2 diabetes mellitus with diabetic polyneuropathy; Z79.4 Long term (current) use of insulin; G89.29 Other chronic pain; I10 Essential (primary) hypertension; Z79.899 Other long term (current) drug therapy; Z79.84 Long term (current) use of oral hypoglycemic drugs
CPT/HCPCS: 52356; 00918; 99284 ×2; 36415; 74176; 76000; 80048; 80076; 81001; 82962; 83036; 83690; 85025; 93005; 96361; 96374; 96375; 96376; 99221; J7030; J7120; A4216; G0378; J2405